=== PATIENT | male | born 1950 | race African-American/Black ===

== ENCOUNTER 2018-12-01 18:50 | Emergency (ER) | payer MEDICARE, OTHER ==
--- NOTE | 2018-12-01 19:39 | RAD ---
RADIOGRAPH CHEST 1 VIEW: DATE: 12/01/2018 HISTORY: 67-year-old male status post aspiration FINDINGS: There is no airspace density, pulmonary edema, or pneumothorax. The lateral costophrenic angles are n ot effaced. However, the lungs are hyperinflated, and the posterior lower lobe lung bases are therefore not visualized. IMPRESSION: No acute pulmonary findings. Limited study.
--- NOTE | 2018-12-01 19:43 | RAD ---
Radiograph neck soft tissues 2 views: 12/01/2018 HISTORY: 67-year-old male with dysphagia FINDINGS: There is high-grade multilevel degenerative disc disease and high-grade multilevel facet DJD. In addition, there are bulky anterior flowing osteophytes from C2 to C3 through C5-6 which encroach u isabel the posterior pharyngeal wall, distorting the hypopharynx and larynx. Prevertebral soft tissue thickness is normal. IMPRESSION: 1. DISH (diffuse idiopathic skeletal hyperostosis). This could result in chronic dysphagia. 2. Severe cervical spondylosis.
== END 2018-12-01 21:35 | disposition home or self-care (01) ==
LOC: ERS 18:50
DX: R13.10 Dysphagia, unspecified (principal); I25.10 Atherosclerotic heart disease of native coronary artery without angina pectoris; E78.5 Hyperlipidemia, unspecified; I10 Essential (primary) hypertension; Z79.899 Other long term (current) drug therapy; Z79.82 Long term (current) use of aspirin; Z86.73 Personal history of transient ischemic attack (TIA), and cerebral infarction without residual deficits
CPT/HCPCS: 70360; 71045

== ENCOUNTER 2018-12-19 18:29 | Inpatient (IN) | payer MEDICARE, OTHER ==
[2018-12-19 19:19] LABS: Actual Bicarbonate (HCO3a) 20.8 mEq/L (22-28); Analyzer IN Cardio ER; Base Excess (BEa) -4.8 mEq/L (-2.0 to +3.0); CO2 Tension 40.8 mmHg (35.0-45.0); Calcium, Ionized 1.27 mmol/L (1.12-1.30); Carboxyhemoglobin (COHb) 0.5 gm% (0.0-3.0); Hemoglobin (Hb) 17.1 g/dL (14.0-18.0); O2 Tension (PaO2) 66.7 mmHg (> 80.0); Potassium - ABG Lab 5.33 mmol/L (3.70-5.30); pH, Arterial 7.33 (7.35-7.45)
[2018-12-19 19:37] LABS: #Basophils 0.1 thou/uL (0.0-0.2); #Lymphocytes 1.2 thou/uL (1.20-3.40); #Monocytes 0.6 thou/uL (0.11-0.59); #Neutrophils 10.2 thou/uL (1.40-6.50); %Basophils 0.6 % (0.0-1.0); %Eosinophils 0.1 % (0.0-10.0); %Monocytes 5.1 % (0.0-10.0); %Neutrophils 84.2 % (42.0-75.0); Mean Corpuscular HGB CONC 30.9 g/dL (32.0-36.0); Mean Corpuscular Hemoglobin 28.4 pg (27.0-31.0); Mean Corpuscular Volume 91.9 fL (78.0-98.0); Mean Platelet Volume 11.9 fL (7.4-10.4); Platelet Count 180 thou/uL (130-400); RBC Distribution Width 14.1 % (11.5-14.5); White Blood Cell (WBC) Count 12.1 thou/uL (4.8-10.8)
[2018-12-19 19:39] LABS: Bilirubin Small (Negative); Blood, Urine Negative (Negative); Clarity CLOUDY (Clear); Glucose, Urine (Dipstick) Negative (Negative); Leukocyte Negative (Negative); Nitrite Negative (Negative); Protein, Urine (Dipstick) Negative (Neg-Trace); Specific Gravity, Urine 1.017 (1.002-1.036)
[2018-12-19 19:50] LABS: Puncture Site LRA
--- NOTE | 2018-12-19 19:51 | RAD ---
CHEST ONE VIEW: HISTORY: Altered mental status. COMPARISON: Radiograph from 12/01/2018. FINDINGS: There are abnormal air space opacities in both lower lobes. There is a small left effusion. There i s no pneumothorax. There is no acute osseous abnormality. IMPRESSION: Air space opacities, both lower lobes, may reflect infection or aspiration. POS: HOME
--- NOTE | 2018-12-19 19:56 | CT ---
CT BRAIN WITHOUT CONTRAST: HISTORY: Altered mental status. COMPARISON: CT brain from 11/06/2018. FINDINGS: Old left MCA infarction. No acute hemorrhage or infarct. Old lacunar infarcts. There is moderate d ilatation of the lateral ventricles. Mild atrophy. The calvarium is intact. The paranasal sinuses and mastoids are clear. IMPRESSION: Chronic findings. No acute intracranial abnormality. POS: HOME
[2018-12-19 20:17] LABS: ALT (SGPT) 18 U/L (8-55); AST (SGOT) 19 U/L (5-34); Acetaminophen Less than 6.0 mcg/mL (10.0-30.0); Alcohol Less than 10 mg/dL (Less than 10); Alkaline Phosphatase 140 U/L (40-150); Anion Gap 23 mmol/L (10-20); BUN (Urea Nitrogen) 107 mg/dL (8.4-25.7); Bilirubin, Total 1.3 mg/dL (0.2-1.2); Calc. Creatinine Clearance 0 mL/min (70-130); Carbon Dioxide 18 mmol/L (23-31); Chloride 119 mmol/L (98-107); Estimated GFR-MDRD 22; Globulin 4.8 g/dL (2.4-3.5); Glucose 176 mg/dL (80-115); Lipase 95 U/L (8-78); Potassium 5.9 mmol/L (3.5-5.1); Protein, Total 8.8 g/dL (5.8-8.1); Salicylate Less than 8.0 mg/dL (15.0-30.0); Sodium 154 mmol/L (136-145)
[2018-12-19] MEDS ORDERED: Insulin Regular 300 UNITS/3 ML VIAL ONE (20:43)
[2018-12-19] MEDS ORDERED: Piperacillin/Tazobactam 4.5 GM VIAL ONE (20:43)
[2018-12-19] MEDS ORDERED: Calcium Chloride 1 GM/10 ML Abboject SYRINGE ONE (20:43)
[2018-12-19] MEDS ORDERED: Clindamycin/D5W 600 mg/50 ml Premix Bag ONE (23:24)
[2018-12-19 23:38] LABS: Lactic Acid 2.5 mmol/L (0.5-2.2)
[2018-12-19] MEDS ORDERED: Ondansetron PF 4 MG/2 ML Vial IVP PRN (23:57)
[2018-12-19] MEDS ORDERED: Acetaminophen 325 MG TAB PO PRN (23:57)
[2018-12-19] MEDS ORDERED: Ondansetron ODT 4 MG TAB SL PRN (23:57)
[2018-12-19] MEDS ORDERED: Sodium Chloride 0.9% 1,000 ML IV SCH ×2 (23:59)
[2018-12-20 00:38] VITALS: BMI 24.4
[2018-12-20] MEDS ORDERED: Dextrose 5% in Water 1,000 ML IV PRN ×2 (02:01→07:32)
[2018-12-20] MEDS ORDERED: Dextrose 50% Abboject 50 ML SYRINGE IVP PRN (02:01)
[2018-12-20] MEDS ORDERED: HumaLOG 300 UNITS/3 ML VIAL SC PRN ×2 (02:01→07:32)
[2018-12-20] MEDS: Dextrose 5 %-0.45 % NaCl 1,000 ML IV SCH ×3 (02:40→22:23)
[2018-12-20] MEDS ORDERED: Artificial Tear Sol 15 ML BOT EA EYE PRN (02:53)
[2018-12-20] MEDS ORDERED: Vancomycin HCl 1.5 GM in Sodium Chloride 0.9% 250 ML 300 ML IVPB SCH (03:00)
[2018-12-20] MEDS ORDERED: Piperacillin/Tazobactam 4.5 GM in Sodium Chloride 0.9% 100 ML IVPB SCH ×2 (04:00→06:00)
[2018-12-20 04:03] LABS: Anion Gap 12 mmol/L (10-20); BUN (Urea Nitrogen) 96 mg/dL (8.4-25.7); Calc. Creatinine Clearance 29 mL/min (70-130); Calcium 9.8 mg/dL (7.8-10.44); Carbon Dioxide 19 mmol/L (23-31); Estimated GFR-MDRD 28; Glucose 207 mg/dL (80-115); Potassium 4.3 mmol/L (3.5-5.1); Sodium 153 mmol/L (136-145)
[2018-12-20 04:08] LABS: #Lymphocytes 1.1 thou/uL (1.20-3.40); #Monocytes 0.7 thou/uL (0.11-0.59); #Neutrophils 11.6 thou/uL (1.40-6.50); %Basophils 0.1 % (0.0-1.0); %Eosinophils 0.1 % (0.0-10.0); %Lymphocytes 8.4 % (21.0-51.0); %Monocytes 5.1 % (0.0-10.0); %Neutrophils 86.3 % (42.0-75.0); Hemoglobin 14.8 g/dL (14.0-18.0); Mean Corpuscular HGB CONC 29.9 g/dL (32.0-36.0); Mean Corpuscular Hemoglobin 27.8 pg (27.0-31.0); Mean Platelet Volume 11.7 fL (7.4-10.4); Platelet Count 160 thou/uL (130-400); RBC Distribution Width 13.8 % (11.5-14.5); Red Blood Cell (RBC) Count 5.33 mill/uL (4.70-6.10); White Blood Cell (WBC) Count 13.5 thou/uL (4.8-10.8)
[2018-12-20 04:18] LABS: Chloride 126 mmol/L (98-107)
--- NOTE | 2018-12-20 05:50 | HP ---
PRIMARY CARE DOCTOR: Dr. Irma Escobedo. CODE STATUS: Has not been verified; as of now will be full code. CHIEF COMPLAINT: Change in mental status. HISTORY OF PRESENT ILLNESS: This is a 68-year-old male patient with past medical history of stroke. The patient lives in a custodial. The patient is aphasic, came to the hospital after having change in mental status. It was reported that the patient has been lethargic, not eating and drinking for the past 2 to 3 days. Also complaining of abdominal pain. The symptoms were severe and that is the reason why the patient was transferred to hospital. REVIEW OF SYSTEMS: Unable to obtain. The patient is aphasic. PAST MEDICAL HISTORY: The patient has coronary artery disease, hyperlipidemia, history of CVA, diabetes, hypertension. PAST SURGICAL HISTORY: No surgical history. PSYCHIATRIC HISTORY: No previous psych history. SOCIAL HISTORY: Lives in long-term care facility in [place]. No alcohol. No drugs. No smoking history. ALLERGIES: NO KNOWN DRUG ALLERGIES. REPORTED MEDICATIONS: 1. Glipizide. 2. Aspirin. 3. Atenolol. 4. Clopidogrel. 5. Dorzolamide. 6. Furosemide. 7. Humalog. 8. Latanoprost. 9. Mirtazapine. 10. Potassium. 11. Scopolamine. 12. Simvastatin. 13. Timolol. 14. Trazodone. PHYSICAL EXAMINATION: VITAL SIGNS: On presentation, blood pressure 115/85 with heart rate 74, respiratory rate was 20, temperature 98.3. Pain was 0/10. Oxygen saturation was 100% on room air. GENERAL APPEARANCE: The patient is alert, aphasic, unable to establish a real communication. HEENT: Eyes, normal conjunctivae. Dry oral mucosa. Anicteric. No JVD. RESPIRATORY: Bilateral air entry decreased. No rales. No wheezes. Symmetric expansion. CARDIOVASCULAR: Normal rate, regular rhythm. No murmurs. No gallop. No edema. ABDOMEN: Soft. Normal bowel sounds. MUSCULOSKELETAL: Baseline range of motion and strength. SKIN: Warm, intact. No pallor. No rash. No redness. Capillary refill seems to be intact. NEUROLOGIC: No evidence of any new focal weakness. Cranial nerves seems to be intact. PSYCHIATRIC: Patient is in good mood. No anxiety. Optimal judgment. EKG was reviewed. The patient had normal sinus rhythm with left ventricular hypertrophy with repolarization abnormalities, NM 142. Head CT, chronic changes. No acute process. LABORATORY DATA: Reviewed. The patient has white count 12.1, hemoglobin 17, MCV 91, platelet count 180. Blood gas was done. The patient has a pH of 7.33, pCO2 of 40, pO2 of 66.7. Initial sodium was 154, repeat one 153; potassium 5.9, repeat one 4.3; chloride 119, repeat one 126; carbon dioxide 18, repeat one 19; anion gap 23, repeat one was 12; creatinine initially was 3.34, came down to 2.77; glucose 176, came down to 207; lactic acid 2.7, came down to 2.5. ASSESSMENT AND PLAN: The patient will be placed in the hospital with follow medical problems; 1. Dehydration likely due to poor oral intake. The patient has dysphagia after stroke. Will need a speech and swallow evaluation. Might need PEG tube placement. This will need to be clarified with the power of employment attorney in the morning. We will hydrate, we will monitor electrolytes, we will treat accordingly. 2. Leukocytosis with concern for some possible infection. Antibiotics have been started. Procalcitonin was sent and is negative. We will discontinue antibiotics since the leukocytosis seems to be more compatible with dehydration. We will continue to monitor. If any evidence of infection appears, we will restart treatment, it does not seem to be the case. 3. Hypernatremia. This is likely secondary to dehydration. We will hydrate with D5 half NS. We will continue to monitor BMP and we will adjust IV fluids accordingly. The patient had discussion regarding PEG tube placement and free water ingestion is the solution, specially in the long run in this patient's condition. 4. Hyperchloremic metabolic acidosis. We will correct the hyperchloremia with D5W and NS. We will monitor BMP and adjust fluids accordingly. 5. Acute kidney injury. The patient presented with a creatinine of 3.34. When the patient was discharged in October, creatinine was 0.9. This is, as mentioned above, likely due to dehydration. We will hydrate, we will monitor kidney function. Hopefully, he would continue to get better. 6. Uncontrolled diabetes with blood sugar of 176 to 207. The patient has been started on sliding scale for optimal control. 7. Lactic acidosis, initially 2.7, repeat one 2.5. This is likely secondary to dehydration or hypoperfusion. We will treat as above. 8. Deep venous thrombosis prophylaxis. 9. Acute encephalopathy. This is likely metabolic secondary to hypernatremia and dehydration. We will treat underlying condition. 10. History of coronary artery disease. This is chronic, is stable. Reconcile home medications. 11. Hyperlipidemia. Low-cholesterol diet is advised. Reconcile home medications. 12. Deep venous thrombosis prophylaxis. Job ID: [id number]
[2018-12-20] MEDS ORDERED: Clindamycin/D5W 600 MG in Premix Bag 1 BAG IVPB SCH (06:00)
[2018-12-20] MEDS ORDERED: Bisacodyl 10 MG SUPP PR PRN (07:32)
[2018-12-20] MEDS ORDERED: Diabetic Tussin 200 MG/10 ML UDCUP PO PRN (07:32)
[2018-12-20] MEDS ORDERED: Senokot S 8.6-50 MG TAB PO PRN (07:32)
[2018-12-20] MEDS ORDERED: Sodium Chloride 0.65% Nasal 44 ML BOT EA NARE PRN (07:32)
[2018-12-20] MEDS ORDERED: Cepastat Lozenges 1 LOZ PO PRN (07:32)
[2018-12-20] MEDS ORDERED: Artificial Tears 18 DROP/0.9 ML EA EYE PRN (07:32)
[2018-12-20] MEDS ORDERED: Loperamide HCl 2 MG CAP PO PRN (07:32)
[2018-12-20] MEDS ORDERED: hydrALAZINE 20 MG/ML VIAL SLOW IVP PRN (07:32)
[2018-12-20] MEDS ORDERED: Bisacodyl 5 MG TAB PO PRN (07:32)
[2018-12-20] MEDS ORDERED: Potassium Chloride 20 MEQ TAB PO SCH (09:00)
[2018-12-20] MEDS ORDERED: Furosemide 80 MG TAB PO SCH (09:00)
[2018-12-20] MEDS ORDERED: Prevnar 13-Val Conj/PF 0.5 ML SYRINGE IM ONE (09:00)
[2018-12-20] MEDS ORDERED: Vancomycin HCl 1 GM in Premix Bag 1 BAG IVPB SCH (09:00)
[2018-12-20] MEDS: Enoxaparin Sodium 30 MG/0.3 ML SYRINGE SC SCH (09:33)
[2018-12-20] MEDS: Atenolol 50 MG TAB PO SCH (09:35)
[2018-12-20] MEDS: Aspirin 325 MG TAB PO SCH (09:35)
[2018-12-20] MEDS: Clopidogrel Bisulfate 75 MG TAB PO SCH (09:36)
[2018-12-20] MEDS: Atorvastatin Calcium 10 MG TAB PO SCH (09:36)
[2018-12-20] MEDS: Timolol 0.5% Ophth Soln 5 ml Bottle EA EYE SCH ×2 (11:05→20:22)
[2018-12-20] MEDS: Dorzolamide HCl 2% Ophth Soln 10 ml Bottle R EYE SCH ×3 (11:06→20:21)
--- NOTE | 2018-12-20 12:05 | PDOC.PN ---
- Subjective Encounter Start Date: 12/20/18 Encounter Start Time: 08:15 -: non-verbal, old records requested/rev Patient seen and examined. No overnight events - Objective Resuscitation Status - Order Detail: 12/20/18 02:59 Resuscitation Status Routine Resuscitation Status: FULL: Full Resuscitation MAR Reviewed: Yes Vital Signs & Weight: Vital Signs (12 hours) Temp Pulse Resp BP BP Pulse Ox 12/20/18 11:05 62 121/78 12/20/18 09:35 62 12/20/18 08:00 98.4 F 62 20 121/78 98 12/20/18 04:00 97.7 F 64 20 108/69 99 Weight Weight 180 lb 0.119 oz I&O: 12/19/18 12/20/18 12/21/18 06:59 06:59 06:59 Intake Total 750 Output Total 1200 Balance -450 Result Diagrams: 12/20/18 03:30 12/20/18 03:30 Additional Labs: Accuchecks 12/20/18 12/19/18 04:26 20:47 POC Glucose 195 H 146 H Phys Exam - Physical Examination Constitutional: NAD HEENT: PERRLA, sclera anicteric dry MM Neck: no JVD, supple Respiratory: no wheezing, no rales, no rhonchi Cardiovascular: RRR, no significant murmur, no rub Gastrointestinal: soft, non-tender, no distention, positive bowel sounds Musculoskeletal: no edema, pulses present haq+ residual weakness Lymphatic: no nodes Psychiatric: normal affect Skin: no rash, normal turgor Dx/Plan (1) Acute metabolic encephalopathy Code(s): G93.41 - METABOLIC ENCEPHALOPATHY Status: Acute (2) Acute kidney failure Status: Acute (3) Dehydration Code(s): E86.0 - DEHYDRATION Status: Acute Comment: due to poor po intake, free water deficit (4) Hyperkalemia Code(s): E87.5 - HYPERKALEMIA Status: Acute (5) Hypernatremia Code(s): E87.0 - HYPEROSMOLALITY AND HYPERNATREMIA Status: Acute (6) Lactic acidosis Code(s): E87.2 - ACIDOSIS Status: Acute (7) Metabolic acidosis Code(s): E87.2 - ACIDOSIS Status: Acute (8) Diabetes type 2, controlled Code(s): E11.9 - TYPE 2 DIABETES MELLITUS WITHOUT COMPLICATIONS Status: Chronic (9) Dyslipidemia Code(s): E78.5 - HYPERLIPIDEMIA, UNSPECIFIED Status: Chronic (10) Glaucoma Code(s): H40.9 - UNSPECIFIED GLAUCOMA Status: Chronic (11) H/O: CVA (cerebrovascular accident) Code(s): Z86.73 - PRSNL HX OF TIA (TIA), AND CEREB INFRC W/O RESID DEFICITS Status: Chronic (12) HTN (hypertension) Code(s): I10 - ESSENTIAL (PRIMARY) HYPERTENSION Status: Chronic Qualifiers: - Plan cont current plan of care, continue antibiotics * continue dex with water 1/2 NS at 100 ml per hour * pt is not safe for PO intake as per speech * seems like pt will need peg tube for adequate nutritional intake. * I tried to call family but unable to reach on phone * add KAYLA kwong vancomycin * medication reviewed as below * symptomatic treatment * monitor labs * home meds reconciled Review of Systems - Review of Systems Other: unable to review due to AMS - Medications/Allergies Allergies/Adverse Reactions: Allergies Allergy/AdvReac Type Severity Reaction Status Date / Time No Known Drug Allergies Allergy Verified 12/20/18 02:13 Medications: Current Medications Acetaminophen (Tylenol) 650 mg PO Q4H PRN PRN Reason: Fever/Mild Pain Artificial Tears (Liquitears 15ml Bottle) 0 drop EA EYE DAILYPRN PRN PRN Reason: Dry Eyes Aspirin (Aspirin) 325 mg PO QAM-[facility] Last Admin: 12/20/18 09:35 Dose: Not Given Atenolol (Tenormin) 50 mg PO DAILY [facility] Last Admin: 12/20/18 09:35 Dose: Not Given Atorvastatin Calcium (Lipitor) 10 mg PO DAILY [facility] Last Admin: 12/20/18 09:36 Dose: Not Given Bisacodyl (Dulcolax) 10 mg OR DAILYPRN PRN PRN Reason: Constipation Bisacodyl (Dulcolax) 10 mg PO DAILYPRN PRN PRN Reason: Constipation Clopidogrel Bisulfate (Plavix) 75 mg PO DAILY [facility] Last Admin: 12/20/18 09:36 Dose: Not Given Dextrose/Water (Dextrose 50%) 25 gm IVP PRN PRN PRN Reason: HYPOGLYCEMIA PROTOCOL Dorzolamide HCl (Trusopt 2% Ophth Soln) 1 drop R EYE TID [facility] Last Admin: 12/20/18 11:06 Dose: 1 drop Enoxaparin Sodium (Lovenox) 30 mg SC 0900 [facility] Last Admin: 12/20/18 09:33 Dose: 30 mg Glucagon (Glucagon) 1 mg IM PRN PRN PRN Reason: Dry Eyes Guaifenesin (Robitussin Sf) 200 mg PO Q4H PRN PRN Reason: Cough Hydralazine HCl (Apresoline) 10 mg SLOW IVP Q4H PRN PRN Reason: SBP > 180 and HR < 70 Dextrose/Sodium Chloride (D5 1/2 Ns) 1,000 mls @ 100 mls/hr IV .Q10H [facility] Last Admin: 12/20/18 02:40 Dose: 1,000 mls Dextrose/Water (D5w) 1,000 mls @ 0 mls/hr IV .Q0M PRN PRN Reason: Hypoglycemia Insulin Human Lispro (Humalog) 0 units SC .MODERATE SLIDING SC PRN PRN Reason: Moderate Correctional Scale Insulin Human Lispro (Humalog) 0 units SC .BEDTIME SLIDING SC PRN PRN Reason: Bedtime Correctional Scale Latanoprost (Xalatan 0.005% Ophth Soln) 1 drop EA EYE HS [facility] Loperamide HCl (Imodium) 2 mg PO PRN PRN PRN Reason: Diarrhea/Loose Stools Mirtazapine (Remeron) 7.5 mg PO HS [facility] Miscellaneous Medication (Pharmacy To Dose) 1 each IVPB PRN PRN PRN Reason: SEPSIS Ondansetron HCl (Zofran) 4 mg IVP Q6H PRN PRN Reason: Nausea/Vomiting Stop: 12/24/18 08:40 Ondansetron HCl (Zofran Odt) 4 mg SL Q6H PRN PRN Reason: Nausea/Vomiting Stop: 12/25/18 08:40 Scopolamine (Transderm Scop) 1.5 mg TOP Q3D [facility] Senna/Docusate Sodium (Senokot S) 2 tab PO BID PRN PRN Reason: Constipation Sodium Chloride ([place] Nasal [place] 0.65%) 0 ml EA NARE QIDPRN PRN PRN Reason: Nasal Congestion Sodium Chloride (Flush - Normal Saline) 10 ml IVF Q12HR [facility] Last Admin: 12/20/18 11:08 Dose: Not Given Sodium Chloride (Flush - Normal Saline) 10 ml IVF PRN PRN PRN Reason: Saline Flush Throat Lozenges (Cepastat Lozenges) 1 jomar PO Q2H PRN PRN Reason: Sore Throat Timolol Maleate (Timoptic 0.5% Ophth Soln) 1 drop EA EYE BID [facility] Last Admin: 12/20/18 11:05 Dose: 1 drop Trazodone HCl (Desyrel) 25 mg PO HS [facility]
[2018-12-20] MEDS: Scopolamine 1.5 mg/72 hour Patch TOP SCH (13:17)
[2018-12-20] MEDS: cefTRIAXone\\ROCEPHIN 1 GM in Sodium Chloride 0.9% 100 ML IVPB SCH (13:18)
[2018-12-20] MEDS: Mirtazapine 15 MG TAB PO SCH (20:21)
[2018-12-20] MEDS: Latanoprost 0.005% Ophth Soln 2.5 ml Bottle EA EYE SCH (20:21)
[2018-12-20] MEDS: traZODone HCl 50 MG TAB PO SCH (20:22)
[2018-12-21] MEDS: HumaLOG 300 UNITS/3 ML VIAL SC PRN ×2 (05:35→12:18)
[2018-12-21 06:06] LABS: #Eosinphils 0.1 thou/uL (0.0-0.7); #Lymphocytes 1.1 thou/uL (1.20-3.40); #Monocytes 0.7 thou/uL (0.11-0.59); #Neutrophils 9.2 thou/uL (1.40-6.50); %Basophils 0.1 % (0.0-1.0); %Eosinophils 0.8 % (0.0-10.0); %Lymphocytes 9.8 % (21.0-51.0); %Neutrophils 83.4 % (42.0-75.0); Hemoglobin 13.4 g/dL (14.0-18.0); Mean Corpuscular HGB CONC 30.9 g/dL (32.0-36.0); Mean Corpuscular Hemoglobin 28.7 pg (27.0-31.0); Mean Corpuscular Volume 92.8 fL (78.0-98.0); Mean Platelet Volume 11.8 fL (7.4-10.4); Platelet Count 129 thou/uL (130-400); Red Blood Cell (RBC) Count 4.68 mill/uL (4.70-6.10)
[2018-12-21 06:29] LABS: ALT (SGPT) 19 U/L (8-55); AST (SGOT) 16 U/L (5-34); Albumin 3.2 g/dL (3.4-4.8); Alkaline Phosphatase 106 U/L (40-150); Anion Gap 14 mmol/L (10-20); BUN (Urea Nitrogen) 68 mg/dL (8.4-25.7); Calc. Creatinine Clearance 44 mL/min (70-130); Calcium 8.9 mg/dL (7.8-10.44); Carbon Dioxide 21 mmol/L (23-31); Chloride 125 mmol/L (98-107); Estimated GFR-MDRD 44; Globulin 3.4 g/dL (2.4-3.5); Glucose 277 mg/dL (80-115); Potassium 3.5 mmol/L (3.5-5.1); Protein, Total 6.6 g/dL (5.8-8.1); Sodium 156 mmol/L (136-145)
[2018-12-21] MEDS: Timolol 0.5% Ophth Soln 5 ml Bottle EA EYE SCH ×2 (07:48→20:18)
[2018-12-21] MEDS: Dorzolamide HCl 2% Ophth Soln 10 ml Bottle R EYE SCH ×3 (07:48→20:18)
[2018-12-21] MEDS: Dextrose 5% in Water 1,000 ML IV SCH ×2 (07:48→16:49)
[2018-12-21] MEDS: Atorvastatin Calcium 10 MG TAB PO SCH (07:49)
[2018-12-21] MEDS: Atenolol 50 MG TAB PO SCH (07:49)
[2018-12-21] MEDS: Aspirin 325 MG TAB PO SCH (07:49)
[2018-12-21] MEDS: Enoxaparin Sodium 30 MG/0.3 ML SYRINGE SC SCH (07:49)
[2018-12-21] MEDS: Clopidogrel Bisulfate 75 MG TAB PO SCH (07:49)
--- NOTE | 2018-12-21 11:15 | PDOC.PN ---
- Subjective Encounter Start Date: 12/21/18 Encounter Start Time: 08:15 Patient seen and examined. No overnight events - Objective Resuscitation Status - Order Detail: 12/20/18 02:59 Resuscitation Status Routine Resuscitation Status: FULL: Full Resuscitation MAR Reviewed: Yes Vital Signs & Weight: Vital Signs (12 hours) Temp Pulse Resp BP BP Pulse Ox 12/21/18 07:49 67 12/21/18 07:48 67 147/87 H 12/21/18 07:24 98.4 F 67 12 147/87 H 99 12/21/18 04:10 98.0 F 63 18 110/79 98 12/21/18 00:21 98.3 F 63 14 122/79 95 Weight Weight 180 lb 0.119 oz I&O: 12/20/18 12/21/18 12/22/18 06:59 06:59 06:59 Intake Total 750 2450 Output Total 1200 1425 Balance -450 1025 Result Diagrams: 12/21/18 05:49 12/21/18 05:48 Additional Labs: Accuchecks 12/21/18 12/20/18 12/20/18 04:13 20:03 16:23 POC Glucose 235 H 207 H 193 H 12/20/18 11:22 POC Glucose 254 H Phys Exam - Physical Examination Constitutional: NAD HEENT: PERRLA, sclera anicteric dry MM Neck: no JVD, supple Respiratory: no wheezing, no rales, no rhonchi, clear to auscultation bilateral Cardiovascular: RRR, no significant murmur, no rub Gastrointestinal: soft, non-tender, no distention Musculoskeletal: no edema, pulses present Lymphatic: no nodes Skin: no rash, normal turgor Dx/Plan (1) Acute metabolic encephalopathy Code(s): G93.41 - METABOLIC ENCEPHALOPATHY Status: Acute (2) Acute kidney failure Status: Acute (3) Dehydration Code(s): E86.0 - DEHYDRATION Status: Acute Comment: due to poor po intake, free water deficit (4) Hyperkalemia Code(s): E87.5 - HYPERKALEMIA Status: Acute (5) Hypernatremia Code(s): E87.0 - HYPEROSMOLALITY AND HYPERNATREMIA Status: Acute (6) Lactic acidosis Code(s): E87.2 - ACIDOSIS Status: Acute (7) Metabolic acidosis Code(s): E87.2 - ACIDOSIS Status: Acute (8) Diabetes type 2, controlled Code(s): E11.9 - TYPE 2 DIABETES MELLITUS WITHOUT COMPLICATIONS Status: Chronic (9) Dyslipidemia Code(s): E78.5 - HYPERLIPIDEMIA, UNSPECIFIED Status: Chronic (10) Glaucoma Code(s): H40.9 - UNSPECIFIED GLAUCOMA Status: Chronic (11) H/O: CVA (cerebrovascular accident) Code(s): Z86.73 - PRSNL HX OF TIA (TIA), AND CEREB INFRC W/O RESID DEFICITS Status: Chronic (12) HTN (hypertension) Code(s): I10 - ESSENTIAL (PRIMARY) HYPERTENSION Status: Chronic Qualifiers: - Plan cont current plan of care, plan discussed w/ family, continue antibiotics, social service technician * today will change to IV 5 % Dex with water at 100 ml per hour * I spoke with TRENT, regarding need for PEG tube for nutrition and hydration, and she agreed * will consult GI for PEG tube * will repeat labs tomorrow * supportive care * medication reviewed as below * symptomatic treatment. Review of Systems - Review of Systems Other: unable to review due to encephalopathy - Medications/Allergies Allergies/Adverse Reactions: Allergies Allergy/AdvReac Type Severity Reaction Status Date / Time No Known Drug Allergies Allergy Verified 12/20/18 02:13 Medications: Current Medications Acetaminophen (Tylenol) 650 mg PO Q4H PRN PRN Reason: Fever/Mild Pain Artificial Tears (Liquitears 15ml Bottle) 0 drop EA EYE DAILYPRN PRN PRN Reason: Dry Eyes Aspirin (Aspirin) 325 mg PO QAM-[facility] Last Admin: 12/21/18 07:49 Dose: Not Given Atenolol (Tenormin) 50 mg PO DAILY [facility] Last Admin: 12/21/18 07:49 Dose: Not Given Atorvastatin Calcium (Lipitor) 10 mg PO DAILY [facility] Last Admin: 12/21/18 07:49 Dose: Not Given Bisacodyl (Dulcolax) 10 mg HI DAILYPRN PRN PRN Reason: Constipation Bisacodyl (Dulcolax) 10 mg PO DAILYPRN PRN PRN Reason: Constipation Clopidogrel Bisulfate (Plavix) 75 mg PO DAILY [facility] Last Admin: 12/21/18 07:49 Dose: Not Given Dextrose/Water (Dextrose 50%) 25 gm IVP PRN PRN PRN Reason: HYPOGLYCEMIA PROTOCOL Dorzolamide HCl (Trusopt 2% Ophth Soln) 1 drop R EYE TID [facility] Last Admin: 12/21/18 07:48 Dose: 1 drop Enoxaparin Sodium (Lovenox) 30 mg SC 0900 [facility] Last Admin: 12/21/18 07:49 Dose: 30 mg Glucagon (Glucagon) 1 mg IM PRN PRN PRN Reason: Dry Eyes Guaifenesin (Robitussin Sf) 200 mg PO Q4H PRN PRN Reason: Cough Hydralazine HCl (Apresoline) 10 mg SLOW IVP Q4H PRN PRN Reason: SBP > 180 and HR < 70 Dextrose/Water (D5w) 1,000 mls @ 0 mls/hr IV .Q0M PRN PRN Reason: Hypoglycemia Ceftriaxone Sodium 1 gm/ (Sodium Chloride) 100 mls @ 200 mls/hr IVPB Q24HR [facility] Last Admin: 12/20/18 13:18 Dose: 100 mls Dextrose/Water (D5w) 1,000 mls @ 100 mls/hr IV .Q10H [facility] Last Admin: 12/21/18 07:48 Dose: 1,000 mls Insulin Human Lispro (Humalog) 0 units SC .MODERATE SLIDING SC PRN PRN Reason: Moderate Correctional Scale Last Admin: 12/21/18 05:35 Dose: 4 unit Insulin Human Lispro (Humalog) 0 units SC .BEDTIME SLIDING SC PRN PRN Reason: Bedtime Correctional Scale Latanoprost (Xalatan 0.005% Ophth Soln) 1 drop EA EYE [facility] Last Admin: 12/20/18 20:21 Dose: 1 drop Loperamide HCl (Imodium) 2 mg PO PRN PRN PRN Reason: Diarrhea/Loose Stools Mirtazapine (Remeron) 7.5 mg PO [facility] Last Admin: 12/20/18 20:21 Dose: Not Given Ondansetron HCl (Zofran) 4 mg IVP Q6H PRN PRN Reason: Nausea/Vomiting Stop: 12/24/18 08:40 Ondansetron HCl (Zofran Odt) 4 mg SL Q6H PRN PRN Reason: Nausea/Vomiting Stop: 12/25/18 08:40 Scopolamine (Transderm Scop) 1.5 mg TOP Q3D [facility] Last Admin: 12/20/18 13:17 Dose: 1.5 mg Senna/Docusate Sodium (Senokot S) 2 tab PO BID PRN PRN Reason: Constipation Sodium Chloride ([place] Nasal [place] 0.65%) 0 ml EA NARE QIDPRN PRN PRN Reason: Nasal Congestion Sodium Chloride (Flush - Normal Saline) 10 ml IVF Q12HR [facility] Last Admin: 12/21/18 07:48 Dose: Not Given Sodium Chloride (Flush - Normal Saline) 10 ml IVF PRN PRN PRN Reason: Saline Flush Throat Lozenges (Cepastat Lozenges) 1 jomar PO Q2H PRN PRN Reason: Sore Throat Timolol Maleate (Timoptic 0.5% Ophth Soln) 1 drop EA EYE BID [facility] Last Admin: 12/21/18 07:48 Dose: 1 drop Trazodone HCl (Desyrel) 25 mg PO HS [facility] Last Admin: 12/20/18 20:22 Dose: Not Given
[2018-12-21] MEDS: cefTRIAXone\\ROCEPHIN 1 GM in Sodium Chloride 0.9% 100 ML IVPB SCH (12:07)
[2018-12-21] MEDS: Latanoprost 0.005% Ophth Soln 2.5 ml Bottle EA EYE SCH (20:17)
[2018-12-21] MEDS: Mirtazapine 15 MG TAB PO SCH (20:18)
[2018-12-21] MEDS: traZODone HCl 50 MG TAB PO SCH (20:18)
--- NOTE | 2018-12-21 21:16 | CON ---
DATE OF CONSULTATION: 12/21/2018 CHIEF COMPLAINT: Confusion, trouble swallowing. HISTORY OF PRESENT ILLNESS: Mr. Velázquez is a 68-year-old man who was admitted on 12/19/2018 with altered mental status. His sister states that he has had progressive worsening with his trouble swallowing over the last couple months. He has always coughed when he swallowed, but he has had more trouble getting adequate oral intake gradually over the last couple months. He prior to admission became dehydrated and lethargic and had not been eating or drinking for a couple days and ultimately was transferred to the emergency room. He was found to have acute renal failure and hypernatremia. He has had no nausea, vomiting, diarrhea, constipation or blood in the stool. No known abdominal pain. GI was consulted for PEG tube placement. PAST MEDICAL HISTORY: Coronary artery disease, hyperlipidemia, stroke, diabetes mellitus, hypertension. PAST SURGICAL HISTORY: He had an incision and drainage of a necrotizing infection in his back. FAMILY HISTORY: Negative for GI malignancy. SOCIAL HISTORY: No alcohol, tobacco, or drugs. He is living in a fci. ALLERGIES: NO KNOWN DRUG ALLERGIES. MEDICATIONS: 1. Aspirin. 2. Atenolol. 3. Atorvastatin. 4. Ceftriaxone. 5. Clopidogrel. 6. Enoxaparin. 7. Dorzolamide eyedrops. 8. Hydralazine. 9. Latanoprost. 10. Mirtazapine. 11. Trazodone. 12. Atenolol. REVIEW OF SYSTEMS: Limited based on his mental status and aphasia. He reports no abdominal pain. PHYSICAL EXAMINATION: VITAL SIGNS: Temperature 98.3, pulse 61, blood pressure 134/85. GENERAL: He is in no acute distress. He is oriented to his name and the city, but otherwise not the year and he is not able to provide significant medical history. HEENT: His eyes have no scleral icterus. Oropharynx is clear without lesions. NECK: He has no cervical or supraclavicular lymphadenopathy. LUNGS: Clear to auscultation bilaterally. HEART: Regular rate and rhythm without murmur. ABDOMEN: Soft, nontender, and nondistended. Bowel sounds are present. EXTREMITIES: No lower extremity edema. LABORATORY DATA: White blood cell count 11.0, hemoglobin 13.4, platelets 129. INR 1.2. Creatinine is 1.85, down from 3.34 on admission. Sodium was 156 today. Bilirubin 1.0, AST 16, ALT 19, alkaline phosphatase 106, albumin 3.2. IMPRESSION: 1. Dehydration leading to hypernatremia and altered mental status and acute renal failure. 2. Oropharyngeal dysphagia with poor oral intake, coughing on any oral intake ultimately leading to the dehydration and acute hospitalization with the above-noted problems. RECOMMENDATIONS: We will proceed with EGD with PEG tube placement tomorrow with preprocedure antibiotics. Job ID: [id number]
[2018-12-22] MEDS: Dextrose 5% in Water 1,000 ML IV SCH ×3 (04:55→23:53)
[2018-12-22 06:57] LABS: #Basophils 0.1 thou/uL (0.0-0.2); #Eosinphils 0.1 thou/uL (0.0-0.7); #Lymphocytes 1.3 thou/uL (1.20-3.40); #Monocytes 0.6 thou/uL (0.11-0.59); #Neutrophils 6.5 thou/uL (1.40-6.50); %Basophils 0.8 % (0.0-1.0); %Eosinophils 1.5 % (0.0-10.0); %Lymphocytes 15.2 % (21.0-51.0); %Monocytes 6.6 % (0.0-10.0); %Neutrophils 75.9 % (42.0-75.0); Hemoglobin 13.8 g/dL (14.0-18.0); Mean Corpuscular Hemoglobin 28.6 pg (27.0-31.0); Mean Corpuscular Volume 92.3 fL (78.0-98.0); Mean Platelet Volume 11.9 fL (7.4-10.4); Platelet Count 123 thou/uL (130-400); Red Blood Cell (RBC) Count 4.84 mill/uL (4.70-6.10); White Blood Cell (WBC) Count 8.5 thou/uL (4.8-10.8)
[2018-12-22 07:20] LABS: Anion Gap 15 mmol/L (10-20); BUN (Urea Nitrogen) 38 mg/dL (8.4-25.7); Calc. Creatinine Clearance 59 mL/min (70-130); Calcium 9.1 mg/dL (7.8-10.44); Carbon Dioxide 18 mmol/L (23-31); Chloride 122 mmol/L (98-107); Estimated GFR-MDRD 62; Glucose 222 mg/dL (80-115); Potassium 3.5 mmol/L (3.5-5.1); Sodium 151 mmol/L (136-145)
[2018-12-22 07:48] LABS: Magnesium 2.3 mg/dL (1.6-2.6); Phosphorus 2.2 mg/dL (2.3-4.7)
[2018-12-22] MEDS ORDERED: K-Phos Neutral 250 MG TAB PO SCH ×2 (08:45→12:00)
[2018-12-22] MEDS: Atenolol 50 MG TAB PO SCH (09:10)
[2018-12-22] MEDS: Aspirin 325 MG TAB PO SCH (09:10)
[2018-12-22] MEDS: Atorvastatin Calcium 10 MG TAB PO SCH (09:11)
[2018-12-22] MEDS: Dorzolamide HCl 2% Ophth Soln 10 ml Bottle R EYE SCH ×3 (09:13→20:48)
[2018-12-22] MEDS: Timolol 0.5% Ophth Soln 5 ml Bottle EA EYE SCH ×2 (09:16→20:48)
[2018-12-22] MEDS ORDERED: Ondansetron HCl/PF 4 MG/2 ML Vial IVP PRN (10:53)
[2018-12-22] MEDS ORDERED: Promethazine HCl 25 MG/ML VIAL IM PRN (10:53)
[2018-12-22] MEDS ORDERED: Promethazine HCl 25 MG/ML VIAL SLOW IVP PRN (10:53)
[2018-12-22] MEDS ORDERED: Potassium Phosphate 9 MMOL in Sodium Chloride 0.9% 100 ML IVPB SCH (11:00)
[2018-12-22] MEDS ORDERED: Pantoprazole 40 MG VIAL IVP SCH (11:30)
[2018-12-22] MEDS: cefTRIAXone\\ROCEPHIN 1 GM in Sodium Chloride 0.9% 100 ML IVPB SCH (12:49)
[2018-12-22] MEDS ORDERED: Lidocaine 1% PF 5 ML VIAL ONE (13:47)
[2018-12-22] MEDS ORDERED: PROPOFOL 200 MG/20 ML VIAL ONE (13:47)
--- NOTE | 2018-12-22 13:59 | OP ---
DATE OF PROCEDURE: 12/22/2018 PROCEDURE PERFORMED: Esophagogastroduodenoscopy with percutaneous endoscopic gastrostomy tube placement and biopsy. PREOPERATIVE DIAGNOSIS: Oropharyngeal dysphagia. DESCRIPTION OF PROCEDURE: Informed consent was obtained from the patient and his family. He was sedated with total intravenous anesthesia. The bite block was placed and the endoscope was advanced easily to the second portion of the duodenum and retroflexion was performed in the stomach. The esophagus was normal. There was a 3 cm hiatal hernia present. The stomach had a 7 mm ulcer in the antrum with white base without stigmata of recent bleeding. Retroflex views in the stomach were unremarkable, except for the hiatal hernia. The pylorus was normal. There were 2 ulcers at the junction between the first and second portions of the duodenum measuring 5 mm and 10 mm and also with clean white base without stigmata of recent bleeding. The remainder of the duodenal mucosa was unremarkable. Biopsies were taken from the antrum to rule out Helicobacter pylori. The stomach was fully insufflated. The appropriate site in the left upper quadrant below the left ribs was palpated and transilluminated. The skin was sterilized with chlorhexidine. The patient did receive Ancef 2 g immediately before the procedure. The skin was sterilized with 5 mL of 1% lidocaine. A small incision was made with a scalpel. The catheter was placed through the abdominal wall into the stomach under direct visualization in 1 attempt. The wire was placed through the catheter and grasped with a snare and pulled out to the patient's mouth. A 20-Lithuanian gastrostomy tube was then placed by the pull-through technique. The external bumper was placed at 5 cm. The patient did have a thick abdominal wall. Second-look endoscopy showed the internal bumper to be in good position and the body of the stomach. The air was suctioned. The procedure was completed. IMPRESSION: 1. A 7 mm gastric antrum ulcer. Biopsies obtained to rule out Helicobacter pylori. 2. Two ulcers at the junction of the second and first portions of the duodenum measuring 5 to 10 mm. 3. Hiatal hernia 3 to 4 cm. 4. A 20-Lithuanian percutaneous endoscopic gastrostomy tube placed. RECOMMENDATIONS: 1. Await histopathology. 2. Start feeds in 12 hours. Job ID: [id number]
--- NOTE | 2018-12-22 15:04 | PRG ---
DATE OF SERVICE: 12/22/2018 SUBJECTIVE: A 68-year-old male prison resident, admitted 3 days ago with altered mentation. He had PEG tube placed today. Family is at the bedside. No fevers or chills reported. REVIEW OF SYSTEMS: Cannot be obtained due to current mentation. OBJECTIVE: VITAL SIGNS: Temperature 98.4, pulse of 73, respirations of 20, blood pressure 124/82 with O2 saturation 99% on room air. GENERAL: A 68-year-old male, in no apparent distress. LUNGS: Showed bibasilar rales with scattered rhonchi. No wheezing appreciated. HEART: S1 and S2 present, regular. ABDOMEN: Soft. Bowel sounds present. PEG tube in place. EXTREMITIES: No edema or calf tenderness. NEUROLOGY: Could not be done due to current cognitive status. PSYCHIATRY: Could not be done due to current cognitive status. LABORATORY DATA: Lab findings; creatinine down to 1.38, BUN 38, bicarbonate is 18, chloride is 122 from 125, sodium of 151, potassium 3.5, phosphorus 2.2, and magnesium 2.3. Chest x-ray on admission by my review showed findings consistent with aspiration pneumonia. IMPRESSION: 1. Sepsis secondary to aspiration pneumonia. 2. Toxic metabolic encephalopathy, multifactorial. 3. Acute kidney injury on chronic kidney disease stage 2. 4. Significant dehydration with lactic acidosis. 5. Hypernatremia/hyperkalemia/hypophosphatemia. 6. Metabolic acidosis secondary to renal failure and lactic acidosis. 7. Diabetes mellitus type 2. 8. Glaucoma. 9. History of cerebrovascular accident. 10. Hypertension. 11. Physical deconditioning. PLAN: PEG tube feeding will be initiated. We will replace phosphorus. Lisinopril, glipizide is currently on hold. We will hold Remeron and trazodone for now. Continue sliding scale. We will resume atenolol at low dose. We will continue D5 water. Resume aspirin and Plavix. DVT prophylaxis with Lovenox. Plan was discussed with the DPOA, sister at the bedside. She stated understanding. Job ID: [id number]
--- NOTE | 2018-12-22 15:08 | PDOC.EVN ---
Event Note - Event Note Event Note: Patient continues to have approx 20 secs of Apnea. Continuous pulse ox.
[2018-12-22] MEDS: metroNIDAZOLE 500 MG in Premix Bag 1 BAG IVPB SCH ×2 (15:15→23:51)
[2018-12-22] MEDS: HumaLOG 300 UNITS/3 ML VIAL SC PRN (16:40)
[2018-12-22] MEDS: Latanoprost 0.005% Ophth Soln 2.5 ml Bottle EA EYE SCH (20:48)
[2018-12-22] MEDS: Atenolol 25 MG TAB PER TUBE SCH (23:53)
[2018-12-23 06:04] LABS: Albumin 2.9 g/dL (3.4-4.8); Anion Gap 13 mmol/L (10-20); BUN (Urea Nitrogen) 25 mg/dL (8.4-25.7); BUN/Creatinine Ratio 20.83; Calc. Creatinine Clearance 68 mL/min (70-130); Calcium 8.5 mg/dL (7.8-10.44); Carbon Dioxide 19 mmol/L (23-31); Chloride 119 mmol/L (98-107); Estimated GFR-MDRD 73; Glucose 297 mg/dL (80-115); Magnesium 2.1 mg/dL (1.6-2.6); Phosphorus 2.4 mg/dL (2.3-4.7); Potassium 3.6 mmol/L (3.5-5.1); Sodium 147 mmol/L (136-145)
[2018-12-23] MEDS ORDERED: Dextrose 5% in Water 1,000 ML IV SCH (07:16)
[2018-12-23] MEDS: HumaLOG 300 UNITS/3 ML VIAL SC PRN ×3 (07:36→18:18)
[2018-12-23] MEDS: metroNIDAZOLE 500 MG in Premix Bag 1 BAG IVPB SCH ×3 (08:32→22:55)
[2018-12-23] MEDS: Pantoprazole 40 MG VIAL IVP SCH (08:35)
[2018-12-23] MEDS: Atenolol 25 MG TAB PER TUBE SCH ×2 (08:40→20:33)
[2018-12-23] MEDS: Atorvastatin Calcium 10 MG TAB PO SCH (08:43)
[2018-12-23] MEDS: Saccharomyces boulardii 250 MG CAP PO SCH (08:43)
[2018-12-23] MEDS: Aspirin 325 MG TAB PO SCH (08:43)
[2018-12-23] MEDS: Scopolamine 1.5 mg/72 hour Patch TOP SCH (08:43)
[2018-12-23] MEDS: Timolol 0.5% Ophth Soln 5 ml Bottle EA EYE SCH ×2 (08:45→20:35)
[2018-12-23] MEDS: Dorzolamide HCl 2% Ophth Soln 10 ml Bottle R EYE SCH ×3 (08:49→20:35)
[2018-12-23] MEDS: Enoxaparin Sodium 30 MG/0.3 ML SYRINGE SC SCH (09:40)
[2018-12-23] MEDS: cefTRIAXone\\ROCEPHIN 1 GM in Sodium Chloride 0.9% 100 ML IVPB SCH (12:32)
[2018-12-23] MEDS: Dextrose 5% in Water 1,000 ML IV SCH (17:09)
[2018-12-23] MEDS: glipiZIDE 5 MG TAB PER TUBE SCH (17:10)
[2018-12-23] MEDS: Latanoprost 0.005% Ophth Soln 2.5 ml Bottle EA EYE SCH (20:35)
--- NOTE | 2018-12-23 21:51 | PRG ---
DATE OF SERVICE: 12/23/2018 SUBJECTIVE: Mr. Velázquez is tolerating his PEG tube feeds well. He has no abdominal pain. OBJECTIVE: VITAL SIGNS: Temperature 98.2, pulse 73, blood pressure 150/70. GENERAL: He is in no acute distress. Awake and alert. LUNGS: Clear to auscultation bilaterally. HEART: Regular rate and rhythm without murmur. ABDOMEN: Soft, nontender, nondistended. Bowel sounds are present. The G-tube site appears healthy. The external bumper was loosened from 5 cm to 5.5 cm. IMPRESSION: 1. Oropharyngeal dysphagia, status post gastrostomy tube placement. 2. Hypernatremia, improving. 3. Protein-calorie malnutrition. RECOMMENDATIONS: 1. Continue PEG tube feeds with water flushes. 2. I will sign off. Please call if GI can be of assistance. Job ID: [id number]
--- NOTE | 2018-12-23 22:29 | PDOC.PN ---
- Subjective Encounter Start Date: 12/23/18 Encounter Start Time: 12:30 Patient seen and examined for Sepsis/AMS/MEENA. Mentation improving. Tolerating PEG feeds. No new complaints. No overnight events - Objective Resuscitation Status - Order Detail: 12/20/18 02:59 Resuscitation Status Routine Resuscitation Status: FULL: Full Resuscitation MAR Reviewed: Yes Vital Signs & Weight: Vital Signs (12 hours) Temp Pulse Resp BP BP Pulse Ox 12/23/18 20:35 73 12/23/18 20:00 98.2 F 107 H 18 150/70 H 100 12/23/18 16:00 98.9 F 70 18 120/85 100 12/23/18 11:36 98.7 F 72 20 148/84 H 100 Weight Admit Weight 180 lb 0.119 oz Weight 180 lb 0.119 oz I&O: 12/22/18 12/23/18 12/24/18 06:59 06:59 06:59 Intake Total 2400 2180 1430 Output Total 1050 650 Balance 1350 2180 780 Result Diagrams: 12/22/18 06:05 12/24/18 05:20 Additional Labs: Accuchecks 12/23/18 12/23/18 12/23/18 20:14 17:19 11:35 POC Glucose 244 H 255 H 282 H 12/23/18 05:41 POC Glucose 261 H Phys Exam - Physical Examination Constitutional: NAD Respiratory: no wheezing, no rhonchi few rales at bases Cardiovascular: RRR, no rub Gastrointestinal: soft, positive bowel sounds PEG + Dx/Plan - Plan DVT proph w/SCDs IMPRESSION: 1. Sepsis secondary to aspiration pneumonia. 2. Toxic metabolic encephalopathy, multifactorial. 3. Acute kidney injury on chronic kidney disease stage 2. 4. Significant dehydration with lactic acidosis. 5. Hypernatremia/hyperkalemia/hypophosphatemia. 6. Metabolic acidosis secondary to renal failure and lactic acidosis. 7. Diabetes mellitus type 2. 8. Glaucoma. 9. History of cerebrovascular accident. 10. Hypertension. 11. Physical deconditioning. 12. Moderate PEM. PLAN: Cont Atbx AM labs Cont PEG tube feeds Restart Glipizide Cont other meds as below Review of Systems - Review of Systems Respiratory: Cough, Dry. negative: Shortness of Breath, Hemoptysis, SOB with Excertion, Pleuritic Pain, Sputum, Wheezing Cardiovascular: negative: chest pain, palpitations, orthopnea, paroxysmal nocturnal dyspnea, edema, light headedness, other Gastrointestinal: negative: Nausea, Vomiting, Abdominal Pain, Diarrhea, Constipation, Melena, Hematochezia, Other - Medications/Allergies Allergies/Adverse Reactions: Allergies Allergy/AdvReac Type Severity Reaction Status Date / Time No Known Drug Allergies Allergy Verified 12/20/18 02:13 Medications: Current Medications Acetaminophen (Tylenol) 650 mg PO Q4H PRN PRN Reason: Fever/Mild Pain Artificial Tears (Liquitears 15ml Bottle) 0 drop EA EYE DAILYPRN PRN PRN Reason: Dry Eyes Aspirin (Aspirin) 325 mg PO QAM[facility] Last Admin: 12/23/18 08:43 Dose: 325 mg Atenolol (Tenormin) 25 mg PER TUBE BID [facility] Last Admin: 12/23/18 20:33 Dose: 25 mg Atorvastatin Calcium (Lipitor) 10 mg PO DAILY [facility] Last Admin: 12/23/18 08:43 Dose: 10 mg Bisacodyl (Dulcolax) 10 mg [place] DAILYPRN PRN PRN Reason: Constipation Bisacodyl (Dulcolax) 10 mg PO DAILYPRN PRN PRN Reason: Constipation Clopidogrel Bisulfate (Plavix) 75 mg PO DAILY [facility] Last Admin: 12/21/18 07:49 Dose: Not Given Dextrose/Water (Dextrose 50%) 25 gm IVP PRN PRN PRN Reason: HYPOGLYCEMIA PROTOCOL [facility] 1 drop R EYE TID [facility] Last Admin: 12/23/18 20:35 Dose: 1 drop Glipizide (Glucotrol) 5 mg PER TUBE BID-AC [facility] Last Admin: 12/23/18 17:10 Dose: 5 mg Glucagon (Glucagon) 1 mg IM PRN PRN PRN Reason: Dry Eyes Guaifenesin (Robitussin Sf) 200 mg PO Q4H PRN PRN Reason: Cough Hydralazine HCl (Apresoline) 10 mg SLOW IVP Q4H PRN PRN Reason: SBP > 180 and HR < 70 Dextrose/Water (D5w) 1,000 mls @ 0 mls/hr IV .Q0M PRN PRN Reason: Hypoglycemia Ceftriaxone Sodium 1 gm/ (Sodium Chloride) 100 mls @ 200 mls/hr IVPB Q24HR [facility] Last Admin: 12/23/18 12:32 Dose: 100 mls Metronidazole 500 mg/ Device 100 mls @ 100 mls/hr IVPB Q8H [facility] Last Admin: 12/23/18 14:37 Dose: 100 mls Dextrose/Water (D5w) 1,000 mls @ 30 mls/hr IV .Q24H [facility] Last Admin: 12/23/18 17:09 Dose: 1,000 mls Insulin Human Lispro (Humalog) 0 units SC .MODERATE SLIDING SC PRN PRN Reason: Moderate Correctional Scale Last Admin: 12/23/18 18:18 Dose: 6 unit Insulin Human Lispro (Humalog) 0 units SC .BEDTIME SLIDING SC PRN PRN Reason: Bedtime Correctional Scale Latanoprost (Xalatan 0.005% Ophth Soln) 1 drop EA EYE HS [facility] Last Admin: 12/23/18 20:35 Dose: 1 drop Ondansetron HCl (Zofran) 4 mg IVP Q6H PRN PRN Reason: Nausea/Vomiting Stop: 12/24/18 08:40 Ondansetron HCl (Zofran Odt) 4 mg SL Q6H PRN PRN Reason: Nausea/Vomiting Stop: 12/25/18 08:40 Pantoprazole Sodium (Protonix) 40 mg IVP DAILY [facility] Last Admin: 12/23/18 08:35 Dose: 40 mg Saccharomyces Boulardii (Florastor) 250 mg PO DAILY [facility] Last Admin: 12/23/18 08:43 Dose: 250 mg Scopolamine (Transderm Scop) 1.5 mg TOP Q3D [facility] Last Admin: 12/23/18 08:43 Dose: 1.5 mg Senna/Docusate Sodium (Senokot S) 2 tab PO BID PRN PRN Reason: Constipation Sodium Chloride ([place] Nasal [place] 0.65%) 0 ml EA NARE QIDPRN PRN PRN Reason: Nasal Congestion Sodium Chloride (Flush - Normal Saline) 10 ml IVF Q12HR [facility] Last Admin: 12/23/18 20:36 Dose: Not Given Sodium Chloride (Flush - Normal Saline) 10 ml IVF PRN PRN PRN Reason: Saline Flush Throat Lozenges (Cepastat Lozenges) 1 jomar PO Q2H PRN PRN Reason: Sore Throat Timolol Maleate (Timoptic 0.5% Ophth Soln) 1 drop EA EYE BID [facility] Last Admin: 12/23/18 20:35 Dose: 1 drop
[2018-12-24] MEDS: Dextrose 5% in Water 1,000 ML IV SCH (05:09)
[2018-12-24] MEDS: metroNIDAZOLE 500 MG in Premix Bag 1 BAG IVPB SCH ×3 (05:09→22:21)
[2018-12-24] MEDS: HumaLOG 300 UNITS/3 ML VIAL SC PRN ×3 (05:19→17:44)
[2018-12-24 06:00] LABS: Albumin 2.8 g/dL (3.4-4.8); Anion Gap 12 mmol/L (10-20); BUN (Urea Nitrogen) 22 mg/dL (8.4-25.7); Calc. Creatinine Clearance 72 mL/min (70-130); Calcium 8.6 mg/dL (7.8-10.44); Carbon Dioxide 22 mmol/L (23-31); Chloride 119 mmol/L (98-107); Estimated GFR-MDRD 77; Glucose 218 mg/dL (80-115); Magnesium 2.3 mg/dL (1.6-2.6); Phosphorus 2.4 mg/dL (2.3-4.7); Potassium 3.8 mmol/L (3.5-5.1); Sodium 149 mmol/L (136-145)
[2018-12-24] MEDS: Aspirin 325 MG TAB PO SCH (09:48)
[2018-12-24] MEDS: Atenolol 25 MG TAB PER TUBE SCH (09:48)
[2018-12-24] MEDS: glipiZIDE 5 MG TAB PER TUBE SCH ×2 (09:48→17:35)
[2018-12-24] MEDS: Saccharomyces boulardii 250 MG CAP PO SCH (09:48)
[2018-12-24] MEDS: Pantoprazole 40 MG VIAL IVP SCH (09:48)
[2018-12-24] MEDS: Atorvastatin Calcium 10 MG TAB PO SCH (09:49)
[2018-12-24] MEDS: Timolol 0.5% Ophth Soln 5 ml Bottle EA EYE SCH ×2 (09:49→20:42)
[2018-12-24] MEDS: Dorzolamide HCl 2% Ophth Soln 10 ml Bottle R EYE SCH ×3 (09:51→20:40)
[2018-12-24] MEDS: cefTRIAXone\\ROCEPHIN 2 GM in Sodium Chloride 0.9% 100 ML IVPB SCH (11:52)
[2018-12-24] MEDS ORDERED: NPH, Human Insulin Isophane 300 UNIT/3 ML VIAL SC SCH (12:45)
[2018-12-24] MEDS ORDERED: Tamsulosin HCl 0.4 MG CAP PO SCH (16:45)
--- NOTE | 2018-12-24 17:09 | PDOC.PN ---
- Subjective Encounter Start Date: 12/24/18 Encounter Start Time: 10:30 Patient seen and examined for Sepsis. Low grade fever per RN. Tolerating tube feeds. No new complaints. No overnight events. Gamaliel evans. - Objective Resuscitation Status - Order Detail: 12/20/18 02:59 Resuscitation Status Routine Resuscitation Status: FULL: Full Resuscitation MAR Reviewed: Yes Vital Signs & Weight: Vital Signs (12 hours) Temp Pulse Resp BP BP Pulse Ox 12/24/18 11:05 97.6 F 85 18 109/70 12/24/18 09:49 91 126/82 12/24/18 09:48 91 126/82 12/24/18 08:00 99.0 F 91 18 126/82 100 Weight Admit Weight 180 lb 0.119 oz Weight 180 lb 0.119 oz I&O: 12/23/18 12/24/18 12/25/18 06:59 06:59 06:59 Intake Total 2180 1430 30 Output Total 950 Balance 2180 480 30 Result Diagrams: 12/22/18 06:05 12/24/18 05:20 Additional Labs: Accuchecks 12/24/18 12/24/18 12/23/18 11:04 04:37 20:14 POC Glucose 308 H 213 H 244 H 12/23/18 17:19 POC Glucose 255 H Phys Exam - Physical Examination Constitutional: NAD Respiratory: no wheezing, no rhonchi Bibasilar rales Cardiovascular: RRR, no rub Gastrointestinal: soft, non-tender, positive bowel sounds Dx/Plan - Plan DVT proph w/SCDs IMPRESSION: 1. Sepsis secondary to aspiration pneumonia. 2. Toxic metabolic encephalopathy, multifactorial. 3. Acute kidney injury on chronic kidney disease stage 2. improving 4. Significant dehydration with lactic acidosis. 5. Hypernatremia/hyperkalemia/hypophosphatemia. 6. Metabolic acidosis secondary to renal failure and lactic acidosis. 7. Diabetes mellitus type 2. 8. Glaucoma. 9. History of CVA. 10. Hypertension. 11. Physical deconditioning. 12. Moderate PEM. PLAN: Cont Ceftriaxone with Flagyl AM labs Bolus feeds Add Insulin Cont IVF at KVO Cont Glipizide with sliding scale Cont other meds as below Bladder scan to r/o retention DC in 24-48 hr if stable Review of Systems - Review of Systems Respiratory: negative: Cough, Dry, Shortness of Breath, Hemoptysis, SOB with Excertion, Pleuritic Pain, Sputum, Wheezing Cardiovascular: negative: chest pain, palpitations, orthopnea, paroxysmal nocturnal dyspnea, edema, light headedness, other - Medications/Allergies Allergies/Adverse Reactions: Allergies Allergy/AdvReac Type Severity Reaction Status Date / Time No Known Drug Allergies Allergy Verified 12/20/18 02:13 Medications: Current Medications Acetaminophen (Tylenol) 650 mg PO Q4H PRN PRN Reason: Fever/Mild Pain Artificial Tears (Liquitears 15ml Bottle) 0 drop EA EYE DAILYPRN PRN PRN Reason: Dry Eyes Aspirin (Aspirin) 325 mg PO QAM[facility] Last Admin: 12/24/18 09:48 Dose: 325 mg Atenolol (Tenormin) 25 mg PER TUBE DAILY [facility] Atorvastatin Calcium (Lipitor) 10 mg PO DAILY [facility] Last Admin: 12/24/18 09:49 Dose: 10 mg Bisacodyl (Dulcolax) 10 mg [place] DAILYPRN PRN PRN Reason: Constipation Bisacodyl (Dulcolax) 10 mg PO DAILYPRN PRN PRN Reason: Constipation Clopidogrel Bisulfate (Plavix) 75 mg PO DAILY [facility] Last Admin: 12/21/18 07:49 Dose: Not Given Dextrose/Water (Dextrose 50%) 25 gm IVP PRN PRN PRN Reason: HYPOGLYCEMIA PROTOCOL Dorzolamide [facility] ([facility]opt [facility]) 1 drop R EYE TID [facility] Last Admin: 12/24/18 15:45 Dose: 1 drop Glipizide (Glucotrol) 5 mg PER TUBE BID-AC [facility] Last Admin: 12/24/18 09:48 Dose: 5 mg Glucagon (Glucagon) 1 mg IM PRN PRN PRN Reason: Dry Eyes Guaifenesin (Robitussin Sf) 200 mg PO Q4H PRN PRN Reason: Cough Hydralazine HCl (Apresoline) 10 mg SLOW IVP Q4H PRN PRN Reason: SBP > 180 and HR < 70 Dextrose/Water (D5w) 1,000 mls @ 0 mls/hr IV .Q0M PRN PRN Reason: Hypoglycemia Metronidazole 500 mg/ Device 100 mls @ 100 mls/hr IVPB Q8H [facility] Last Admin: 12/24/18 15:44 Dose: 100 mls Dextrose/Water (D5w) 1,000 mls @ 30 mls/hr IV .Q24H [facility] Last Admin: 12/24/18 05:09 Dose: 1,000 mls Ceftriaxone Sodium 2 gm/ (Sodium Chloride) 100 mls @ 200 mls/hr IVPB Q24HR [facility] Last Admin: 12/24/18 11:52 Dose: 100 mls Insulin Human Lispro (Humalog) 0 units SC .MODERATE SLIDING SC PRN PRN Reason: Moderate Correctional Scale Last Admin: 12/24/18 11:55 Dose: 8 unit Insulin Human Lispro (Humalog) 0 units SC .BEDTIME SLIDING SC PRN PRN Reason: Bedtime Correctional Scale Insulin Human NPH (Humulin N) 10 unit SC DAILY [facility] Latanoprost (Xalatan 0.005% Ophth Soln) 1 drop EA EYE HS [facility] Last Admin: 12/23/18 20:35 Dose: 1 drop Ondansetron HCl (Zofran Odt) 4 mg SL Q6H PRN PRN Reason: Nausea/Vomiting Stop: 12/25/18 08:40 Pantoprazole Sodium (Protonix) 40 mg IVP DAILY [facility] Last Admin: 12/24/18 09:48 Dose: 40 mg Saccharomyces Boulardii (Florastor) 250 mg PO DAILY [facility] Last Admin: 12/24/18 09:48 Dose: 250 mg Scopolamine (Transderm Scop) 1.5 mg TOP Q3D [facility] Last Admin: 12/23/18 08:43 Dose: 1.5 mg Senna/Docusate Sodium (Senokot S) 2 tab PO BID PRN PRN Reason: Constipation Sodium Chloride ([place] Nasal [place] 0.65%) 0 ml EA NARE QIDPRN PRN PRN Reason: Nasal Congestion Sodium Chloride (Flush - Normal Saline) 10 ml IVF Q12HR [facility] Last Admin: 12/24/18 09:51 Dose: 10 ml Sodium Chloride (Flush - Normal Saline) 10 ml IVF PRN PRN PRN Reason: Saline Flush Tamsulosin HCl (Flomax) 0.4 mg PO ONE [facility] Stop: 12/24/18 17:30 Tamsulosin HCl (Flomax) 0.4 mg PO [facility] Throat Lozenges (Cepastat Lozenges) 1 jomar PO Q2H PRN PRN Reason: Sore Throat Timolol Maleate (Timoptic 0.5% Ophth Soln) 1 drop EA EYE BID [facility] Last Admin: 12/24/18 09:49 Dose: 1 drop
[2018-12-24] MEDS: Acetaminophen 325 MG TAB PO PRN (20:32)
[2018-12-24] MEDS: Latanoprost 0.005% Ophth Soln 2.5 ml Bottle EA EYE SCH (20:40)
[2018-12-25] MEDS: Acetaminophen 325 MG TAB PO PRN ×2 (04:37→16:42)
[2018-12-25] MEDS: Vancomycin HCl 1 GM in Premix Bag 1 BAG IVPB SCH ×2 (04:49→16:05)
[2018-12-25 05:35] LABS: #Eosinphils 0.1 thou/uL (0.0-0.7); #Lymphocytes 1.2 thou/uL (1.20-3.40); #Monocytes 0.7 thou/uL (0.11-0.59); #Neutrophils 9.2 thou/uL (1.40-6.50); %Basophils 0.1 % (0.0-1.0); %Eosinophils 1.2 % (0.0-10.0); %Lymphocytes 10.4 % (21.0-51.0); %Monocytes 6.1 % (0.0-10.0); %Neutrophils 82.3 % (42.0-75.0); Mean Corpuscular HGB CONC 31.7 g/dL (32.0-36.0); Mean Corpuscular Hemoglobin 29.1 pg (27.0-31.0); Mean Corpuscular Volume 91.7 fL (78.0-98.0); Mean Platelet Volume 12.3 fL (7.4-10.4); Platelet Count 102 thou/uL (130-400); RBC Distribution Width 14.2 % (11.5-14.5); Red Blood Cell (RBC) Count 3.79 mill/uL (4.70-6.10); White Blood Cell (WBC) Count 11.2 thou/uL (4.8-10.8)
[2018-12-25 05:53] LABS: Albumin 2.6 g/dL (3.4-4.8); Anion Gap 8 mmol/L (10-20); BUN (Urea Nitrogen) 25 mg/dL (8.4-25.7); BUN/Creatinine Ratio 21.74; Calc. Creatinine Clearance 71 mL/min (70-130); Calcium 8.2 mg/dL (7.8-10.44); Carbon Dioxide 24 mmol/L (23-31); Chloride 117 mmol/L (98-107); Estimated GFR-MDRD 77; Glucose 328 mg/dL (80-115); Phosphorus 1.6 mg/dL (2.3-4.7); Potassium 3.4 mmol/L (3.5-5.1); Sodium 146 mmol/L (136-145)
[2018-12-25] MEDS: metroNIDAZOLE 500 MG in Premix Bag 1 BAG IVPB SCH ×3 (06:14→22:47)
[2018-12-25] MEDS ORDERED: Potassium Phosphate 15 MMOL in Sodium Chloride 0.9% 250 ML 250 ML IVPB SCH (06:30)
[2018-12-25] MEDS: HumaLOG 300 UNITS/3 ML VIAL SC PRN ×3 (06:45→16:07)
[2018-12-25] MEDS: Atenolol 25 MG TAB PER TUBE SCH (08:15)
[2018-12-25] MEDS: Clopidogrel Bisulfate 75 MG TAB PO SCH (08:17)
[2018-12-25] MEDS: glipiZIDE 5 MG TAB PER TUBE SCH ×2 (08:17→16:07)
[2018-12-25] MEDS: Atorvastatin Calcium 10 MG TAB PO SCH (08:17)
[2018-12-25] MEDS: Timolol 0.5% Ophth Soln 5 ml Bottle EA EYE SCH ×2 (08:17→20:31)
[2018-12-25] MEDS: Saccharomyces boulardii 250 MG CAP PO SCH (08:17)
[2018-12-25] MEDS: Pantoprazole 40 MG VIAL IVP SCH (08:17)
[2018-12-25] MEDS: Aspirin 325 MG TAB PO SCH (08:17)
[2018-12-25] MEDS: Dorzolamide HCl 2% Ophth Soln 10 ml Bottle R EYE SCH ×3 (08:18→19:57)
[2018-12-25] MEDS ORDERED: NPH, Human Insulin Isophane 300 UNIT/3 ML VIAL SC SCH (09:00)
--- NOTE | 2018-12-25 11:22 | RAD ---
PORTABLE CHEST 1 VIEW: DATE: 12/25/2018. TIME: 10/52 a.m. HISTORY: Fever and aspiration. FINDINGS: Comparison is made with the exam of 12/19/2018. The heart size is borderline. The aorta is tortuous. Bibasilar patchy airspace opacities are seen. No pneumothoraces or large effusions are identified. IMPRESSION: Bibasilar pneumonia. POS: H
[2018-12-25] MEDS: cefTRIAXone\\ROCEPHIN 2 GM in Sodium Chloride 0.9% 100 ML IVPB SCH (12:01)
[2018-12-25] MEDS: Sodium Chloride 0.45% 1,000 ML IV SCH (12:02)
--- NOTE | 2018-12-25 12:58 | PRG ---
DATE OF SERVICE: 12/25/2018 Mr. Velázquez was noted to have a positive H pylori via biopsy. He had gastric ulcers noted at the time of PEG tube placement. At this point, prolonged antibiotics for Helicobacter pylori treatment will likely not be necessary. I would just continue chronic proton pump inhibitor therapy. He will be changed to pantoprazole 40 mg granules per gastrostomy tube daily. Job ID: [id number]
[2018-12-25] MEDS: Latanoprost 0.005% Ophth Soln 2.5 ml Bottle EA EYE SCH (19:50)
[2018-12-25] MEDS: NPH, Human Insulin Isophane 300 UNIT/3 ML VIAL SC SCH (20:08)
[2018-12-25] MEDS ORDERED: Tamsulosin HCl 0.4 MG CAP PO SCH (21:00)
[2018-12-25] MEDS ORDERED: Doxazosin Mesylate 1 MG TAB PER TUBE SCH (21:15)
--- NOTE | 2018-12-25 21:24 | PDOC.PN ---
- Subjective Encounter Start Date: 12/25/18 Encounter Start Time: 09:15 Patient seen and examined for Encephalopathy/Sepsis. Tolerating PEG tube feeds. No new complaints. Vancomycin added earlier due to fever by overnight physician. - Objective Resuscitation Status - Order Detail: 12/20/18 02:59 Resuscitation Status Routine Resuscitation Status: FULL: Full Resuscitation MAR Reviewed: Yes Vital Signs & Weight: Vital Signs (12 hours) Temp Pulse Resp BP BP BP Pulse Ox 12/25/18 20:31 79 147/84 H 12/25/18 20:14 98.4 F 79 18 147/84 H 99 12/25/18 18:12 70 12 100 12/25/18 17:35 98.2 F 73 20 137/83 100 12/25/18 13:56 80 16 12/25/18 12:07 98.8 F 78 18 115/72 100 Weight Admit Weight 180 lb 0.119 oz Weight 180 lb 0.119 oz I&O: 12/24/18 12/25/18 12/26/18 06:59 06:59 06:59 Intake Total 1430 2510 1560 Output Total 950 2 1 Balance 480 2508 1559 Result Diagrams: 12/25/18 04:58 12/25/18 04:58 Additional Labs: Accuchecks 12/25/18 12/25/18 12/25/18 20:04 15:08 11:02 POC Glucose 220 H 223 H 248 H 12/25/18 12/25/18 12/24/18 06:42 00:24 20:03 POC Glucose 329 H 252 H 257 H Radiology Reviewed by me: Yes (CXR - Bibasilar pneumonia) Phys Exam - Physical Examination Constitutional: NAD Respiratory: no wheezing, no rhonchi Bibasilar rales, no accessory muscle use Cardiovascular: RRR, no rub no heaves/pulsations Gastrointestinal: soft, non-tender, no distention, positive bowel sounds Musculoskeletal: no edema Neuro - detailed neuro exam cannot be done due to current mentaton Dx/Plan - Plan DVT proph w/SCDs IMPRESSION: 1. Sepsis secondary to aspiration pneumonia - on IV Vancomycin/Ceftriaxone and Flagyl 2. Toxic metabolic encephalopathy, multifactorial. 3. Acute kidney injury on chronic kidney disease stage 2. improving 4. Significant dehydration with lactic acidosis. 5. Hypernatremia/hyperkalemia/hypophosphatemia. 6. Metabolic acidosis secondary to renal failure and lactic acidosis. 7. Diabetes mellitus type 2. 8. Glaucoma. 9. History of CVA. 10. Hypertension. 11. Physical deconditioning. 12. Moderate PEM. 13. Urinary retention. PLAN: Cont current Atbx Monitor Vancomycin level CXR today due to persistent fever Replace Phosphorus and Potassium Increase NPH dose due to hyperglycemia Cont Glipizide with Q6h sliding scale AM labs Check PVRs Cont other meds as below DC in 24-48 hr if stable Laboratory Tests 12/25/18 04:58 Potassium 3.4 L Phosphorus 1.6 L Review of Systems - Review of Systems Cardiovascular: negative: chest pain, palpitations, orthopnea, paroxysmal nocturnal dyspnea, edema, light headedness, other Gastrointestinal: negative: Nausea, Vomiting, Abdominal Pain, Diarrhea, Constipation, Melena, Hematochezia, Other - Medications/Allergies Allergies/Adverse Reactions: Allergies Allergy/AdvReac Type Severity Reaction Status Date / Time No Known Drug Allergies Allergy Verified 12/20/18 02:13 Medications: Current Medications Acetaminophen (Tylenol) 650 mg PO Q4H PRN PRN Reason: Fever/Mild Pain Last Admin: 12/25/18 16:42 Dose: 650 mg Albuterol/Ipratropium (Duoneb) 3 ml NEB [id number] [facility] Last Admin: 12/25/18 18:12 Dose: 3 ml Albuterol/Ipratropium (Duoneb) 3 ml NEB [id number] PRN PRN Reason: SOB &/or Wheezing Artificial Tears (Liquitears 15ml Bottle) 0 drop EA EYE DAILYPRN PRN PRN Reason: Dry Eyes Aspirin (Aspirin) 325 mg PO QA-[facility] Last Admin: 12/25/18 08:17 Dose: 325 mg Atenolol (Tenormin) 25 mg PER TUBE DAILY [facility] Last Admin: 12/25/18 08:15 Dose: Not Given Atorvastatin Calcium (Lipitor) 10 mg PO DAILY [facility] Last Admin: 12/25/18 08:17 Dose: 10 mg Bisacodyl (Dulcolax) 10 mg [place] DAILYPRN PRN PRN Reason: Constipation Bisacodyl (Dulcolax) 10 mg PO DAILYPRN PRN PRN Reason: Constipation Clopidogrel Bisulfate (Plavix) 75 mg PO DAILY [facility] Last Admin: 12/25/18 08:17 Dose: 75 mg Dextrose/Water (Dextrose 50%) 25 gm IVP PRN PRN PRN Reason: HYPOGLYCEMIA PROTOCOL Dorzolamide HCl (Trusopt 2% Ophth Soln) 1 drop R EYE TID [facility] Last Admin: 12/25/18 19:57 Dose: 1 drop Doxazosin Mesylate (Cardura) 1 mg PER TUBE HS [facility] Doxazosin Mesylate (Cardura) 1 mg PER TUBE NOW [facility] Stop: 12/25/18 23:15 Glipizide (Glucotrol) 5 mg PER TUBE BID-AC [facility] Last Admin: 12/25/18 16:07 Dose: 5 mg Glucagon (Glucagon) 1 mg IM PRN PRN PRN Reason: Dry Eyes Guaifenesin (Robitussin Sf) 200 mg PO Q4H PRN PRN Reason: Cough Hydralazine HCl (Apresoline) 10 mg SLOW IVP Q4H PRN PRN Reason: SBP > 180 and HR < 70 Dextrose/Water (D5w) 1,000 mls @ 0 mls/hr IV .Q0M PRN PRN Reason: Hypoglycemia Metronidazole 500 mg/ Device 100 mls @ 100 mls/hr IVPB Q8H [facility] Last Admin: 12/25/18 16:11 Dose: 100 mls Ceftriaxone Sodium 2 gm/ (Sodium Chloride) 100 mls @ 200 mls/hr IVPB Q24HR [facility] Last Admin: 12/25/18 12:01 Dose: 100 mls Vancomycin HCl 1 gm/ Device 200 mls @ 200 mls/hr IVPB 0500,1700 [facility] Last Admin: 12/25/18 16:05 Dose: 200 mls Sodium Chloride (1/2 Normal Saline) 1,000 mls @ 30 mls/hr IV .Q24H [facility] Last Admin: 12/25/18 12:02 Dose: 1,000 mls Insulin Human Lispro (Humalog) 0 units SC .MODERATE SLIDING SC PRN PRN Reason: Moderate Correctional Scale Last Admin: 12/25/18 16:07 Dose: 4 unit Insulin Human Lispro (Humalog) 0 units SC .BEDTIME SLIDING SC PRN PRN Reason: Bedtime Correctional Scale Last Admin: 12/25/18 00:53 Dose: 3 unit Insulin Human NPH (Humulin N) 10 unit SC BID [facility] Last Admin: 12/25/18 20:08 Dose: 10 unit Latanoprost (Xalatan 0.005% Ophth Soln) 1 drop EA EYE HS [facility] Last Admin: 12/25/18 19:50 Dose: 1 drop Miscellaneous Medication (Pharmacy To Dose) 1 each IVPB PRN PRN PRN Reason: . Pantoprazole Sodium (Protonix) 40 mg PER TUBE DAILY [facility] Saccharomyces Boulardii (Florastor) 250 mg PO DAILY [facility] Last Admin: 12/25/18 08:17 Dose: 250 mg Scopolamine (Transderm Scop) 1.5 mg TOP Q3D [facility] Last Admin: 12/23/18 08:43 Dose: 1.5 mg Senna/Docusate Sodium (Senokot S) 2 tab PO BID PRN PRN Reason: Constipation Sodium Chloride ([place] Nasal [place] 0.65%) 0 ml EA NARE QIDPRN PRN PRN Reason: Nasal Congestion Sodium Chloride (Flush - Normal Saline) 10 ml IVF Q12HR [facility] Last Admin: 12/25/18 20:34 Dose: 10 ml Sodium Chloride (Flush - Normal Saline) 10 ml IVF PRN PRN PRN Reason: Saline Flush Throat Lozenges (Cepastat Lozenges) 1 jomar PO Q2H PRN PRN Reason: Sore Throat Timolol Maleate (Timoptic 0.5% Ophth Soln) 1 drop EA EYE BID [facility] Last Admin: 12/25/18 20:31 Dose: 1 drop
[2018-12-26] MEDS: Vancomycin HCl 1 GM in Premix Bag 1 BAG IVPB SCH ×2 (04:38→17:14)
[2018-12-26] MEDS: HumaLOG 300 UNITS/3 ML VIAL SC PRN ×3 (06:02→16:44)
[2018-12-26 06:15] LABS: Band 5 % (5-11); Eosinophils 3 % (0-10); Hemoglobin 10.9 g/dL (14.0-18.0); Lymphocytes 17 % (21-51); MDiff Complete? YES; Mean Corpuscular HGB CONC 31.6 g/dL (32.0-36.0); Mean Corpuscular Volume 91.8 fL (78.0-98.0); Mean Platelet Volume 12.4 fL (7.4-10.4); Monocytes 6 % (0-10); Neutrophil 69 % (42-75); Platelet Count 98 thou/uL (130-400); Platelet Morphology Comment Appears Decreased; RBC Distribution Width 14.2 % (11.5-14.5); RBC Morphology Normal; Red Blood Cell (RBC) Count 3.77 mill/uL (4.70-6.10)
[2018-12-26 06:26] LABS: ALT (SGPT) 15 U/L (8-55); AST (SGOT) 12 U/L (5-34); Albumin 2.6 g/dL (3.4-4.8); Alkaline Phosphatase 122 U/L (40-150); Anion Gap 11 mmol/L (10-20); BUN (Urea Nitrogen) 20 mg/dL (8.4-25.7); Bilirubin, Total 0.3 mg/dL (0.2-1.2); Calc. Creatinine Clearance 92 mL/min (70-130); Calcium 8.3 mg/dL (7.8-10.44); Carbon Dioxide 25 mmol/L (23-31); Chloride 116 mmol/L (98-107); Estimated GFR-MDRD Greater than 90; Globulin 2.8 g/dL (2.4-3.5); Glucose 266 mg/dL (80-115); Potassium 3.5 mmol/L (3.5-5.1); Protein, Total 5.4 g/dL (5.8-8.1); Sodium 148 mmol/L (136-145)
[2018-12-26] MEDS ORDERED: Potassium Phosphate 15 MMOL in Sodium Chloride 0.9% 250 ML 250 ML IVPB SCH (07:00)
[2018-12-26] MEDS: metroNIDAZOLE 500 MG in Premix Bag 1 BAG IVPB SCH ×3 (07:40→23:34)
[2018-12-26] MEDS: Atorvastatin Calcium 10 MG TAB PO SCH (08:04)
[2018-12-26] MEDS: Aspirin 325 MG TAB PO SCH (08:04)
[2018-12-26] MEDS: glipiZIDE 5 MG TAB PER TUBE SCH ×2 (08:04→16:43)
[2018-12-26] MEDS: Pantoprazole 40 MG GRANULES PACKET PER TUBE SCH (08:05)
[2018-12-26] MEDS: Scopolamine 1.5 mg/72 hour Patch TOP SCH (08:05)
[2018-12-26] MEDS: Clopidogrel Bisulfate 75 MG TAB PO SCH (08:05)
[2018-12-26] MEDS: Saccharomyces boulardii 250 MG CAP PO SCH (08:05)
[2018-12-26] MEDS: Atenolol 25 MG TAB PER TUBE SCH (08:06)
[2018-12-26] MEDS: Timolol 0.5% Ophth Soln 5 ml Bottle EA EYE SCH ×2 (08:06→20:42)
[2018-12-26] MEDS: Dorzolamide HCl 2% Ophth Soln 10 ml Bottle R EYE SCH ×3 (08:48→20:42)
[2018-12-26] MEDS: NPH, Human Insulin Isophane 300 UNIT/3 ML VIAL SC SCH ×2 (08:55→20:43)
[2018-12-26] MEDS: cefTRIAXone\\ROCEPHIN 2 GM in Sodium Chloride 0.9% 100 ML IVPB SCH (11:06)
[2018-12-26] MEDS: Sodium Chloride 0.45% 1,000 ML IV SCH ×2 (11:12→23:34)
[2018-12-26 16:54] LABS: Vancomycin, Trough 17.7 ug/mL
--- NOTE | 2018-12-26 19:57 | PDOC.PN ---
- Subjective Encounter Start Date: 12/26/18 Encounter Start Time: 08:45 -: non-verbal Patient seen and examined for Aspiration Pneumonia with Sepsis. No new episodes of fever. On tube feeds. No new complaints. No overnight events - Objective Resuscitation Status - Order Detail: 12/20/18 02:59 Resuscitation Status Routine Resuscitation Status: FULL: Full Resuscitation MAR Reviewed: Yes Vital Signs & Weight: Vital Signs (12 hours) Temp Pulse Resp BP BP BP Pulse Ox 12/26/18 18:30 78 16 100 12/26/18 16:00 98.2 F 69 18 132/81 100 12/26/18 15:23 70 18 100 12/26/18 11:10 66 16 100 12/26/18 08:07 98.2 F 89 20 108/76 100 12/26/18 08:06 86 104/70 12/26/18 08:00 98.2 F Weight Admit Weight 180 lb 0.119 oz Weight 180 lb 0.119 oz I&O: 12/25/18 12/26/18 12/27/18 06:59 06:59 06:59 Intake Total 2350 2980 1742 Output Total 2 3 Balance 2348 2977 1742 Result Diagrams: 12/27/18 05:28 12/27/18 04:40 Additional Labs: Accuchecks 12/26/18 12/26/18 12/26/18 16:23 11:32 04:27 POC Glucose 222 H 269 H 232 H 12/26/18 12/25/18 00:56 20:04 POC Glucose 196 H 220 H Phys Exam - Physical Examination Constitutional: NAD Respiratory: no wheezing, no rhonchi Bibasilar rales with scat rhonchi Cardiovascular: RRR, no rub Gastrointestinal: soft, positive bowel sounds Dx/Plan - Plan DVT proph w/SCDs (no on Lovenox due to low platelets) IMPRESSION: 1. Sepsis secondary to aspiration pneumonia 2. Toxic metabolic encephalopathy, multifactorial. 3. Acute kidney injury on chronic kidney disease stage 2. improving 4. Significant dehydration with lactic acidosis. 5. Hypernatremia/hyperkalemia/hypophosphatemia. 6. Metabolic acidosis secondary to renal failure and lactic acidosis. 7. Diabetes mellitus type 2. 8. Glaucoma. 9. History of CVA. 10. Hypertension. 11. Physical deconditioning. 12. Moderate PEM. 13. Urinary retention - resolved. Repeat postvoid 116ml PLAN: Cont current Vancomycin/Ceftriaxone and Flagyl Vancomycin level monitoring Cont NPH at 10 units BID/Glipizide with Q6h sliding scale AM labs Cont other meds as below DC in 24-48 hr if stable Review of Systems - Review of Systems Cardiovascular: negative: chest pain, palpitations, orthopnea, paroxysmal nocturnal dyspnea, edema, light headedness, other Gastrointestinal: negative: Nausea, Vomiting, Abdominal Pain, Diarrhea, Constipation, Melena, Hematochezia, Other - Medications/Allergies Allergies/Adverse Reactions: Allergies Allergy/AdvReac Type Severity Reaction Status Date / Time No Known Drug Allergies Allergy Verified 12/20/18 02:13 Medications: Current Medications Acetaminophen (Tylenol) 650 mg PO Q4H PRN PRN Reason: Fever/Mild Pain Last Admin: 12/25/18 16:42 Dose: 650 mg Albuterol/Ipratropium (Duoneb) 3 ml NEB [id number] [facility] Last Admin: 12/26/18 18:30 Dose: 3 ml Albuterol/Ipratropium (Duoneb) 3 ml NEB [id number] PRN PRN Reason: SOB &/or Wheezing Artificial Tears (Liquitears 15ml Bottle) 0 drop EA EYE DAILYPRN PRN PRN Reason: Dry Eyes Aspirin (Aspirin) 325 mg PO QAM-[facility] Last Admin: 12/26/18 08:04 Dose: 325 mg Atenolol (Tenormin) 25 mg PER TUBE DAILY [facility] Last Admin: 12/26/18 08:06 Dose: 25 mg Atorvastatin Calcium (Lipitor) 10 mg PO DAILY [facility] Last Admin: 12/26/18 08:04 Dose: 10 mg Bisacodyl (Dulcolax) 10 mg [place] DAILYPRN PRN PRN Reason: Constipation Bisacodyl (Dulcolax) 10 mg PO DAILYPRN PRN PRN Reason: Constipation Clopidogrel Bisulfate (Plavix) 75 mg PO DAILY [facility] Last Admin: 12/26/18 08:05 Dose: 75 mg Dextrose/Water (Dextrose 50%) 25 gm IVP PRN PRN PRN Reason: HYPOGLYCEMIA PROTOCOL Dorzolamide HCl (Trusopt 2% Ophth Soln) 1 drop R EYE TID [facility] Last Admin: 12/26/18 14:29 Dose: 1 drop Glipizide (Glucotrol) 5 mg PER TUBE BID-AC [facility] Last Admin: 12/26/18 16:43 Dose: 5 mg Glucagon (Glucagon) 1 mg IM PRN PRN PRN Reason: Dry Eyes Guaifenesin (Robitussin Sf) 200 mg PO Q4H PRN PRN Reason: Cough Hydralazine HCl (Apresoline) 10 mg SLOW IVP Q4H PRN PRN Reason: SBP > 180 and HR < 70 Dextrose/Water (D5w) 1,000 mls @ 0 mls/hr IV .Q0M PRN PRN Reason: Hypoglycemia Metronidazole 500 mg/ Device 100 mls @ 100 mls/hr IVPB Q8H [facility] Last Admin: 12/26/18 14:29 Dose: 100 mls Ceftriaxone Sodium 2 gm/ (Sodium Chloride) 100 mls @ 200 mls/hr IVPB Q24HR [facility] Last Admin: 12/26/18 11:06 Dose: 100 mls Vancomycin HCl 1 gm/ Device 200 mls @ 200 mls/hr IVPB 0500,1700 [facility] Last Admin: 12/26/18 17:14 Dose: 200 mls Sodium Chloride (1/2 Normal Saline) 1,000 mls @ 30 mls/hr IV .Q24H [facility] Last Admin: 12/26/18 11:12 Dose: Not Given Insulin Human Lispro (Humalog) 0 units SC .MODERATE SLIDING SC PRN PRN Reason: Moderate Correctional Scale Last Admin: 12/26/18 16:44 Dose: 4 unit Insulin Human Lispro (Humalog) 0 units SC .BEDTIME SLIDING SC PRN PRN Reason: Bedtime Correctional Scale Last Admin: 12/25/18 00:53 Dose: 3 unit Insulin Human NPH (Humulin N) 10 unit SC BID [facility] Last Admin: 12/26/18 08:55 Dose: 10 unit Latanoprost (Xalatan 0.005% Ophth Soln) 1 drop EA EYE [facility] Last Admin: 12/25/18 19:50 Dose: 1 drop Miscellaneous Medication (Pharmacy To Dose) 1 each IVPB PRN PRN PRN Reason: . Pantoprazole Sodium (Protonix) 40 mg PER TUBE DAILY [facility] Last Admin: 12/26/18 08:05 Dose: 40 mg Saccharomyces Boulardii (Florastor) 250 mg PO DAILY [facility] Last Admin: 12/26/18 08:05 Dose: 250 mg Scopolamine (Transderm Scop) 1.5 mg TOP Q3D [facility] Last Admin: 12/26/18 08:05 Dose: 1.5 mg Senna/Docusate Sodium (Senokot S) 2 tab PO BID PRN PRN Reason: Constipation Sodium Chloride ([place] Nasal [place] 0.65%) 0 ml EA NARE QIDPRN PRN PRN Reason: Nasal Congestion Sodium Chloride (Flush - Normal Saline) 10 ml IVF Q12HR [facility] Last Admin: 12/26/18 08:07 Dose: 10 ml Sodium Chloride (Flush - Normal Saline) 10 ml IVF PRN PRN PRN Reason: Saline Flush Throat Lozenges (Cepastat Lozenges) 1 jomar PO Q2H PRN PRN Reason: Sore Throat Timolol Maleate (Timoptic 0.5% Ophth Soln) 1 drop EA EYE BID [facility] Last Admin: 12/26/18 08:06 Dose: 1 drop
[2018-12-26] MEDS: Latanoprost 0.005% Ophth Soln 2.5 ml Bottle EA EYE SCH (20:42)
[2018-12-26] MEDS ORDERED: Doxazosin Mesylate 1 MG TAB PER TUBE SCH (21:00)
[2018-12-27 05:11] LABS: ALT (SGPT) 15 U/L (8-55); AST (SGOT) 17 U/L (5-34); Albumin 2.4 g/dL (3.4-4.8); Alkaline Phosphatase 103 U/L (40-150); Anion Gap 14 mmol/L (10-20); BUN (Urea Nitrogen) 19 mg/dL (8.4-25.7); Bilirubin, Total 0.2 mg/dL (0.2-1.2); Calc. Creatinine Clearance 103 mL/min (70-130); Carbon Dioxide 22 mmol/L (23-31); Chloride 118 mmol/L (98-107); Estimated GFR-MDRD Greater than 90; Globulin 2.9 g/dL (2.4-3.5); Glucose 146 mg/dL (80-115); Magnesium 2.5 mg/dL (1.6-2.6); Phosphorus 2.8 mg/dL (2.3-4.7); Potassium 4.8 mmol/L (3.5-5.1); Protein, Total 5.3 g/dL (5.8-8.1); Sodium 149 mmol/L (136-145)
[2018-12-27] MEDS: Vancomycin HCl 1 GM in Premix Bag 1 BAG IVPB SCH ×2 (05:15→15:14)
[2018-12-27 06:25] LABS: #Basophils 0.1 thou/uL (0.0-0.2); #Eosinphils 0.2 thou/uL (0.0-0.7); #Lymphocytes 1.5 thou/uL (1.20-3.40); #Monocytes 0.6 thou/uL (0.11-0.59); #Neutrophils 5.8 thou/uL (1.40-6.50); %Basophils 0.7 % (0.0-1.0); %Eosinophils 2.8 % (0.0-10.0); %Lymphocytes 17.8 % (21.0-51.0); %Monocytes 7.6 % (0.0-10.0); %Neutrophils 71.2 % (42.0-75.0); Hemoglobin 10.6 g/dL (14.0-18.0); Mean Corpuscular HGB CONC 31.3 g/dL (32.0-36.0); Mean Corpuscular Hemoglobin 29.2 pg (27.0-31.0); Mean Corpuscular Volume 93.1 fL (78.0-98.0); Mean Platelet Volume 12.2 fL (7.4-10.4); Platelet Count 109 thou/uL (130-400); RBC Distribution Width 14.5 % (11.5-14.5); Red Blood Cell (RBC) Count 3.64 mill/uL (4.70-6.10); White Blood Cell (WBC) Count 8.2 thou/uL (4.8-10.8)
[2018-12-27] MEDS: metroNIDAZOLE 500 MG in Premix Bag 1 BAG IVPB SCH ×3 (06:37→22:41)
[2018-12-27] MEDS: Atenolol 25 MG TAB PER TUBE SCH (07:58)
[2018-12-27] MEDS: Clopidogrel Bisulfate 75 MG TAB PO SCH (07:58)
[2018-12-27] MEDS: Aspirin 325 MG TAB PO SCH (07:59)
[2018-12-27] MEDS: glipiZIDE 5 MG TAB PER TUBE SCH ×2 (07:59→15:14)
[2018-12-27] MEDS: Dorzolamide HCl 2% Ophth Soln 10 ml Bottle R EYE SCH ×3 (07:59→22:16)
[2018-12-27] MEDS: Saccharomyces boulardii 250 MG CAP PO SCH (07:59)
[2018-12-27] MEDS: Atorvastatin Calcium 10 MG TAB PO SCH (07:59)
[2018-12-27] MEDS: Pantoprazole 40 MG GRANULES PACKET PER TUBE SCH (08:00)
[2018-12-27] MEDS: Timolol 0.5% Ophth Soln 5 ml Bottle EA EYE SCH ×2 (08:00→22:16)
[2018-12-27] MEDS: NPH, Human Insulin Isophane 300 UNIT/3 ML VIAL SC SCH ×2 (08:00→22:17)
[2018-12-27] MEDS: cefTRIAXone\\ROCEPHIN 2 GM in Sodium Chloride 0.9% 100 ML IVPB SCH (10:30)
[2018-12-27] MEDS: Dextrose 5% in Water 1,000 ML IV SCH (11:18)
[2018-12-27] MEDS: HumaLOG 300 UNITS/3 ML VIAL SC PRN (11:29)
[2018-12-27] MEDS ORDERED: Sodium Bicarbonate Tab 325 MG TAB PER TUBE PRN (11:39)
[2018-12-27] MEDS ORDERED: Pancrelipase DR 12000 1 CAP FS PRN (11:39)
--- NOTE | 2018-12-27 14:55 | PDOC.PN ---
- Subjective Encounter Start Date: 12/27/18 Encounter Start Time: 08:20 Pt seen for followup re: acute metabolic encephalopathy. Pt waking up to sternal rub but falling asleep right away, unable to complete ROS. - Objective Resuscitation Status - Order Detail: 12/20/18 02:59 Resuscitation Status Routine Resuscitation Status: FULL: Full Resuscitation MAR Reviewed: Yes Vital Signs & Weight: Vital Signs (12 hours) Temp Pulse Resp BP Pulse Ox 12/27/18 13:53 77 16 100 12/27/18 10:25 70 20 97 12/27/18 08:41 99.0 F 86 20 127/78 100 12/27/18 08:00 88 100 12/27/18 07:58 88 12/27/18 07:56 95 12/27/18 07:55 62 16 95 12/27/18 04:00 98.5 F 75 20 124/75 97 Weight Admit Weight 180 lb 0.119 oz Weight 180 lb 0.119 oz I&O: 12/26/18 12/27/18 12/28/18 06:59 06:59 06:59 Intake Total 2980 3272 210 Output Total 3 Balance 2977 3272 210 Result Diagrams: 12/27/18 05:28 12/27/18 04:40 Additional Labs: Accuchecks 12/27/18 12/27/18 12/26/18 11:29 04:53 20:48 POC Glucose 225 H 139 H 196 H 12/26/18 16:23 POC Glucose 222 H Labs reviewed by me Phys Exam - Physical Examination Constitutional: NAD Dry mucosae Neck: supple Respiratory: clear to auscultation bilateral Cardiovascular: RRR Gastrointestinal: soft Musculoskeletal: edema present Deviation from normal: Unable to assess Dx/Plan (1) Acute metabolic encephalopathy Code(s): G93.41 - METABOLIC ENCEPHALOPATHY Status: Acute Comment: Likely secondary to dehydration/hypernatremia (2) Dehydration Code(s): E86.0 - DEHYDRATION Status: Acute Comment: bolus feeds started (3) Aspiration pneumonia Code(s): J69.0 - PNEUMONITIS DUE TO INHALATION OF FOOD AND VOMIT Status: Acute Comment: continue IV ceftriazone and IV vancomycin, add IV Flagyl (4) Hypernatremia Code(s): E87.0 - HYPEROSMOLALITY AND HYPERNATREMIA Status: Acute Comment: start IV D5W, recheck sodium level (5) Diabetes type 2, controlled Code(s): E11.9 - TYPE 2 DIABETES MELLITUS WITHOUT COMPLICATIONS Status: Chronic Comment: continue accuchecks and insulin sliding scale (6) HTN (hypertension) Code(s): I10 - ESSENTIAL (PRIMARY) HYPERTENSION Status: Chronic Qualifiers: Comment: controlled - Plan * . Review of Systems - Medications/Allergies Allergies/Adverse Reactions: Allergies Allergy/AdvReac Type Severity Reaction Status Date / Time No Known Drug Allergies Allergy Verified 12/20/18 02:13 Medications: Current Medications Acetaminophen (Tylenol) 650 mg PO Q4H PRN PRN Reason: Fever/Mild Pain Last Admin: 12/25/18 16:42 Dose: 650 mg Albuterol/Ipratropium (Duoneb) 3 ml NEB [id number] [facility] Last Admin: 12/27/18 13:53 Dose: 3 ml Albuterol/Ipratropium (Duoneb) 3 ml NEB [id number] PRN PRN Reason: SOB &/or Wheezing Lipase/Protease/Amylase (Christopher Camargo [id number]) 1 cap FS .PER PROTOCOL PRN PRN Reason: TUBE OCCLUSION PROTOCOL Artificial Tears (Liquitears 15ml Bottle) 0 drop EA EYE DAILYPRN PRN PRN Reason: Dry Eyes Aspirin (Aspirin) 325 mg PO QAM-WM [facility] Last Admin: 12/27/18 07:59 Dose: 325 mg Atenolol (Tenormin) 25 mg PER TUBE DAILY [facility] Last Admin: 12/27/18 07:58 Dose: 25 mg Atorvastatin Calcium (Lipitor) 10 mg PO DAILY [facility] Last Admin: 12/27/18 07:59 Dose: 10 mg Bisacodyl (Dulcolax) 10 mg [place] DAILYPRN PRN PRN Reason: Constipation Bisacodyl (Dulcolax) 10 mg PO DAILYPRN PRN PRN Reason: Constipation Clopidogrel Bisulfate (Plavix) 75 mg PO DAILY [facility] Last Admin: 12/27/18 07:58 Dose: 75 mg Dextrose/Water (Dextrose 50%) 25 gm IVP PRN PRN PRN Reason: HYPOGLYCEMIA PROTOCOL Dorzolamide HCl (Trusopt 2% Ophth Soln) 1 drop R EYE TID [facility] Last Admin: 12/27/18 07:59 Dose: 1 drop Glipizide (Glucotrol) 5 mg PER TUBE BID-AC [facility] Last Admin: 12/27/18 07:59 Dose: 5 mg Glucagon (Glucagon) 1 mg IM PRN PRN PRN Reason: Dry Eyes Guaifenesin (Robitussin Sf) 200 mg PO Q4H PRN PRN Reason: Cough Hydralazine HCl (Apresoline) 10 mg SLOW IVP Q4H PRN PRN Reason: SBP > 180 and HR < 70 Dextrose/Water (D5w) 1,000 mls @ 0 mls/hr IV .Q0M PRN PRN Reason: Hypoglycemia Metronidazole 500 mg/ Device 100 mls @ 100 mls/hr IVPB Q8H [facility] Last Admin: 12/27/18 06:37 Dose: 100 mls Ceftriaxone Sodium 2 gm/ (Sodium Chloride) 100 mls @ 200 mls/hr IVPB Q24HR [facility] Last Admin: 12/27/18 10:30 Dose: 100 mls Vancomycin HCl 1 gm/ Device 200 mls @ 200 mls/hr IVPB 0500,1700 [facility] Last Admin: 12/27/18 05:15 Dose: 200 mls Dextrose/Water (D5w) 1,000 mls @ 50 mls/hr IV .Q20H [facility] Last Admin: 12/27/18 11:18 Dose: 1,000 mls Insulin Human Lispro (Humalog) 0 units SC .MODERATE SLIDING SC PRN PRN Reason: Moderate Correctional Scale Last Admin: 12/27/18 11:29 Dose: 4 unit Insulin Human Lispro (Humalog) 0 units SC .BEDTIME SLIDING SC PRN PRN Reason: Bedtime Correctional Scale Last Admin: 12/25/18 00:53 Dose: 3 unit Insulin Human NPH (Humulin N) 10 unit SC BID [facility] Last Admin: 12/27/18 08:00 Dose: 10 unit Latanoprost (Xalatan 0.005% Ophth Soln) 1 drop EA EYE [facility] Last Admin: 12/26/18 20:42 Dose: 1 drop Miscellaneous Medication (Pharmacy To Dose) 1 each IVPB PRN PRN PRN Reason: . Pantoprazole Sodium (Protonix) 40 mg PER TUBE DAILY [facility] Last Admin: 12/27/18 08:00 Dose: 40 mg Saccharomyces Boulardii (Florastor) 250 mg PO DAILY [facility] Last Admin: 12/27/18 07:59 Dose: 250 mg Scopolamine (Transderm Scop) 1.5 mg TOP Q3D [facility] Last Admin: 12/26/18 08:05 Dose: 1.5 mg Senna/Docusate Sodium (Senokot S) 2 tab PO BID PRN PRN Reason: Constipation Sodium Bicarbonate (Bicarbonate, Sodium) 650 mg PER TUBE .PER PROTOCOL PRN PRN Reason: ENTERAL TUBE OCCLUSION Sodium Chloride ([place] Nasal [place] 0.65%) 0 ml EA NARE QIDPRN PRN PRN Reason: Nasal Congestion Sodium Chloride (Flush - Normal Saline) 10 ml IVF Q12HR [facility] Last Admin: 12/27/18 08:00 Dose: Not Given Sodium Chloride (Flush - Normal Saline) 10 ml IVF PRN PRN PRN Reason: Saline Flush Throat Lozenges (Cepastat Lozenges) 1 jomar PO Q2H PRN PRN Reason: Sore Throat Timolol Maleate (Timoptic 0.5% Ophth Soln) 1 drop EA EYE BID [facility] Last Admin: 12/27/18 08:00 Dose: 1 drop
[2018-12-27] MEDS: Latanoprost 0.005% Ophth Soln 2.5 ml Bottle EA EYE SCH (22:16)
[2018-12-28 05:10] LABS: Vancomycin, Trough 21.5 ug/mL
[2018-12-28] MEDS: Vancomycin HCl 1 GM in Premix Bag 1 BAG IVPB SCH (05:16)
[2018-12-28] MEDS ORDERED: Vancomycin HCl 750 MG in Sodium Chloride 0.9% 250 ML 250 ML IVPB SCH (06:00)
[2018-12-28] MEDS: Dextrose 5% in Water 1,000 ML IV SCH (06:03)
[2018-12-28 08:40] LABS: #Eosinphils 0.2 thou/uL (0.0-0.7); #Lymphocytes 1.6 thou/uL (1.20-3.40); #Monocytes 0.7 thou/uL (0.11-0.59); #Neutrophils 4.3 thou/uL (1.40-6.50); %Basophils 0.6 % (0.0-1.0); %Eosinophils 2.3 % (0.0-10.0); %Lymphocytes 23.5 % (21.0-51.0); %Neutrophils 63.6 % (42.0-75.0); Hemoglobin 9.7 g/dL (14.0-18.0); Mean Corpuscular HGB CONC 31.5 g/dL (32.0-36.0); Mean Corpuscular Hemoglobin 28.8 pg (27.0-31.0); Mean Corpuscular Volume 91.4 fL (78.0-98.0); Mean Platelet Volume 11.4 fL (7.4-10.4); Platelet Count 107 thou/uL (130-400); RBC Distribution Width 14.3 % (11.5-14.5); Red Blood Cell (RBC) Count 3.37 mill/uL (4.70-6.10); White Blood Cell (WBC) Count 6.7 thou/uL (4.8-10.8)
[2018-12-28 08:45] LABS: Anion Gap 8 mmol/L (10-20); BUN (Urea Nitrogen) 14 mg/dL (8.4-25.7); Calc. Creatinine Clearance 115 mL/min (70-130); Calcium 7.6 mg/dL (7.8-10.44); Carbon Dioxide 23 mmol/L (23-31); Chloride 113 mmol/L (98-107); Estimated GFR-MDRD Greater than 90; Glucose 151 mg/dL (80-115); Potassium 3.3 mmol/L (3.5-5.1); Sodium 141 mmol/L (136-145)
[2018-12-28] MEDS: Clopidogrel Bisulfate 75 MG TAB PO SCH (09:27)
[2018-12-28] MEDS: glipiZIDE 5 MG TAB PER TUBE SCH ×2 (09:27→16:06)
[2018-12-28] MEDS: Aspirin 325 MG TAB PO SCH (09:27)
[2018-12-28] MEDS: Atenolol 25 MG TAB PER TUBE SCH (09:27)
[2018-12-28] MEDS: Saccharomyces boulardii 250 MG CAP PO SCH (09:27)
[2018-12-28] MEDS: Atorvastatin Calcium 10 MG TAB PO SCH (09:27)
[2018-12-28] MEDS: Pantoprazole 40 MG GRANULES PACKET PER TUBE SCH (09:27)
[2018-12-28] MEDS: Timolol 0.5% Ophth Soln 5 ml Bottle EA EYE SCH (09:28)
[2018-12-28] MEDS: Dorzolamide HCl 2% Ophth Soln 10 ml Bottle R EYE SCH ×2 (09:28→16:07)
[2018-12-28] MEDS: NPH, Human Insulin Isophane 300 UNIT/3 ML VIAL SC SCH (09:29)
[2018-12-28] MEDS ORDERED: Potassium Chloride 20 MEQ TAB PER TUBE SCH (09:30)
[2018-12-28] MEDS: metroNIDAZOLE 500 MG in Premix Bag 1 BAG IVPB SCH (09:38)
[2018-12-28] MEDS ORDERED: metroNIDAZOLE 500 MG TAB PER TUBE SCH (15:00)
[2018-12-28 16:05] VITALS: BP 113/76; TEMP 98.2
--- NOTE | 2018-12-28 16:38 | DIS ---
DATE OF ADMISSION: 12/19/2018 DATE OF DISCHARGE: 12/28/2018 DISCHARGE DIAGNOSES: 1. Acute metabolic encephalopathy. 2. Acute kidney injury. 3. Dehydration. 4. Oropharyngeal dysphagia. 5. Gastric ulcer. 6. Duodenal ulcers. 7. Hiatal hernia. 8. Aspiration pneumonia. 9. Sepsis. 10. Moderate protein-calorie malnutrition. 11. Urinary retention. 12. Helicobacter pylori, chronic active gastritis. CONDITION OF PATIENT ON THE DAY OF DISCHARGE: Stable. I assessed Mr. Velázquez on the day of discharge. He is awake, answering questions. He denies any chest pain or shortness of breath. Vital signs are stable. S1 and S2 are heard, regular. Lungs are clear to auscultation bilaterally. DISCHARGE MEDICATIONS: 1. Vitamin patch every three days. 2. Acetaminophen 650 mg every 4 hours as needed. 3. Aspirin 325 mg daily. 4. Plavix 75 mg daily. 5. Dorzolamide eyedrops one drop to right eye three times a day. 6. Glucagon p.r.n. 7. Latanoprost eyedrops one drop to each eye at bedtime. 8. Mirtazapine 7.5 mg at bedtime. 9. Polyvinyl alcohol p.r.n. 10. Simvastatin 20 mg daily. 11. Timolol one drop to each eye two times a day. 12. Trazodone 25 mg at bedtime. 13. Atenolol 25 mg per tube daily. 14. Omnicef 300 mg per tube two times a day for 5 more days. 15. Furosemide 40 mg per tube. 16. Glipizide 5 mg per tube two times a day. 17. Flagyl 500 mg per tube three times a day for 5 more days. 18. Humulin N 10 units 2 times a day. 19. Protonix 40 mg per tube daily. 20. Potassium chloride 10 mEq per tube daily. 21. Florastor 250 mg daily. CONSULTATIONS DURING THIS HOSPITALIZATION: Gastroenterology, Dr. Dalton. HOSPITAL COURSE: Mr. Velázquez is a pleasant 68-year-old gentleman who was admitted to [facility] on December 19, 2018 for dehydration, leukocytosis, hypernatremia, hyperchloremic metabolic acidosis and acute metabolic encephalopathy. Please refer to Dr. Eddy's history and physical note dated December 20, 2018 for further details. He was seen by Gastroenterology Service for a possible PEG tube placement. On Addie 12, he underwent EGD with PEG tube placement and biopsy. He was found to have a 7 mm gastric antrum ulcer, hiatal hernia, and two ulcers at the junction of 1st and 2nd portions of the duodenum measuring 5 to 10 mm. Biopsy was positive for Helicobacter pylori, chronic active gastritis. Gastroenterology Service recommended continuing him on PPI. Prolonged antibiotic therapy for Helicobacter pylori treatment was deemed not to be necessary. The patient improved clinically with bolus feeds as well as intravenous fluids. Chest x-ray done on December 25, 2018 showed bibasilar pneumonia, most likely aspiration pneumonia. He was treated with intravenous antibiotics and is being stepped down to oral antibiotics at the time of discharge. LABORATORY DATA: On the day of discharge, Mr. Velázquez has white count of 6700, hemoglobin 9.7, platelet count 107,000, sodium 141, potassium 3.3, which is being replaced and creatinine 0.71. He had 1 out of 2 blood cultures growing coagulase-negative Staphylococcus, most likely contaminant. Many thanks for allowing me to participate in your patient's care. Please feel free to contact me with any questions or concerns. DISCHARGE DESTINATION: [facility], from where patient was admitted to the hospital. TIME SPENT: Total amount of time spent coordinating this discharge: 33 minutes. Job ID: [id number]
[2018-12-28] MEDS ORDERED: Cefdinir 300 MG CAP PER TUBE SCH (21:00)
== END 2018-12-28 17:20 | DRG 871 ==
LOC: ERS 18:29 → ERHOLD 20:47 → T4-A 23:42
PROVIDERS: ADMIT Hospitalist; ATTEND Hospitalist
PROC: 0DH63UZ Insertion of Feeding Device into Stomach, Percutaneous Approach (ICD-10-PCS; principal; 2018-12-22)
PROC: 0DB78ZX Excision of Stomach, Pylorus, Via Natural or Artificial Opening Endoscopic, Diagnostic (ICD-10-PCS; 2018-12-22)
DX: A41.9 Sepsis, unspecified organism (principal); J69.0 Pneumonitis due to inhalation of food and vomit; G93.41 Metabolic encephalopathy; N17.9 Acute kidney failure, unspecified; E44.0 Moderate protein-calorie malnutrition; E87.2 Acidosis; E87.0 Hyperosmolality and hypernatremia; E86.0 Dehydration; R13.12 Dysphagia, oropharyngeal phase; K25.9 Gastric ulcer, unspecified as acute or chronic, without hemorrhage or perforation; K26.9 Duodenal ulcer, unspecified as acute or chronic, without hemorrhage or perforation; K44.9 Diaphragmatic hernia without obstruction or gangrene; R33.9 Retention of urine, unspecified; B96.81 Helicobacter pylori [H. pylori] as the cause of diseases classified elsewhere; I25.10 Atherosclerotic heart disease of native coronary artery without angina pectoris; E78.5 Hyperlipidemia, unspecified; E87.5 Hyperkalemia; H40.9 Unspecified glaucoma; I12.9 Hypertensive chronic kidney disease with stage 1 through stage 4 chronic kidney disease, or unspecified chronic kidney disease; N18.2 Chronic kidney disease, stage 2 (mild); E11.22 Type 2 diabetes mellitus with diabetic chronic kidney disease; E83.39 Other disorders of phosphorus metabolism; Z68.24 Body mass index [BMI] 24.0-24.9, adult; Z79.4 Long term (current) use of insulin; Z79.899 Other long term (current) drug therapy; Z86.73 Personal history of transient ischemic attack (TIA), and cerebral infarction without residual deficits; Z79.82 Long term (current) use of aspirin; Z79.01 Long term (current) use of anticoagulants
CPT/HCPCS: 36415; 36416; 51702; 70450; 71045; 80048; 80053; 80069; 80202; 80307; 81003; 82140; 82550; 82805; 83605; 83690; 83735; 84100; 84145; 84484; 85025; 87040; 87086; 87149; 88305; 88312; 90471; 90670; 93005; 94640; 94760; 96361; 96365; 96375; C9113; G0009; J0690; J0696; J1650; J1815; J2001; J2543; J2704; J3370; J3490; J7050; J7620

== ENCOUNTER 2019-01-16 18:33 | Emergency (ER) | payer MEDICARE, OTHER ==
--- NOTE | 2019-01-16 19:41 | RAD ---
RADIOGRAPH CHEST 1 VIEW: DATE: 01/16/2019 HISTORY: 68-year-old male with cough. COMPARISON: 12/25/2018 FINDINGS: The thoracic aorta is tortuous and ectatic. There is no evidence of pulmonary edema, or pneumothorax. The lateral costophrenic angles are not effaced. Previously, there was mild infiltrate at right base. Now, that region has horizontally oriented multiple streaky densities. Left base appears to be grossly clear. IMPRESSION: 1) interval change in appearance of densities at right lower lung zone. Perhaps this represents resol ving pneumonia versus sequela of recent pneumonia. 2) continued follow-up recommended with PA and lateral views beginning in a few days.. 3) ectasia of thoracic aorta.
== END 2019-01-16 20:34 ==
LOC: ERS 18:33
DX: J18.9 Pneumonia, unspecified organism (principal); E11.9 Type 2 diabetes mellitus without complications; E78.5 Hyperlipidemia, unspecified; I10 Essential (primary) hypertension; I25.10 Atherosclerotic heart disease of native coronary artery without angina pectoris; Z79.82 Long term (current) use of aspirin; Z79.899 Other long term (current) drug therapy; Z79.84 Long term (current) use of oral hypoglycemic drugs; Z86.73 Personal history of transient ischemic attack (TIA), and cerebral infarction without residual deficits
CPT/HCPCS: 71045

== ENCOUNTER 2019-03-26 12:27 | Emergency (ER) | payer MEDICARE, OTHER ==
--- NOTE | 2019-03-26 21:19 | CON ---
DATE OF CONSULTATION: 03/26/2019 CHIEF COMPLAINT: Malfunctioning gastrostomy tube. HISTORY OF PRESENT ILLNESS: Mr. Velázquez was transferred to the emergency room from the alf due to his G-tube malfunctioning. On examination, the cap or tip that slips into the end of the G-tube is missing. The G-tube is completely clogged with solidified feeds. The patient states that the tube was last used last night. The skin around the gastrostomy site appears healthy. This is the original tube that was placed in December 2018. The tubing itself is supple and appears intact. I milked significant amount of formed feed content out of the tubing. I then flushed the tube clear with a 60 mL syringe and water. I replaced the tip with a 20-Jordanian replacement tube tip. The original tubing and internal bumper were not changed out. He has a plastic clamp in the middle of the tube. This lies up and down the colonoscopy use. The external bumper lies between 4 and 5 cm. PHYSICAL EXAMINATION: ABDOMEN: Soft, nontender, nondistended. Bowel sounds are present. His gastrostomy tube site appears intact. The tubing was flushed clear, and the tip replaced as stated above. IMPRESSION: Malfunction of gastrostomy tube, resolved. RECOMMENDATIONS: He can restart his tube feeds and be discharged back to the alf. Job ID: [id number]
== END 2019-03-26 14:55 ==
LOC: ERS 12:27
DX: K94.23 Gastrostomy malfunction (principal); I25.10 Atherosclerotic heart disease of native coronary artery without angina pectoris; E78.5 Hyperlipidemia, unspecified; E78.00 Pure hypercholesterolemia, unspecified; E11.9 Type 2 diabetes mellitus without complications; I10 Essential (primary) hypertension; Z86.73 Personal history of transient ischemic attack (TIA), and cerebral infarction without residual deficits; Z79.899 Other long term (current) drug therapy; Z79.82 Long term (current) use of aspirin; Z79.84 Long term (current) use of oral hypoglycemic drugs
CPT/HCPCS: 43762

== ENCOUNTER 2019-07-14 17:45 | Observation (INO) | payer MEDICARE, OTHER ==
[~2019-07-14 17:45] MED LIST: GASTROGRAFIN 30 ML BOT ONE
[2019-07-14 18:31] LABS: #Basophils 0.2 thou/uL (0.0-0.2); #Eosinphils 0.1 thou/uL (0.0-0.7); #Lymphocytes 1.3 thou/uL (1.20-3.40); #Monocytes 0.6 thou/uL (0.11-0.59); #Neutrophils 3.9 thou/uL (1.40-6.50); %Basophils 2.8 % (0.0-1.0); %Eosinophils 1.9 % (0.0-10.0); %Lymphocytes 21.1 % (21.0-51.0); %Monocytes 9.7 % (0.0-10.0); %Neutrophils 64.5 % (42.0-75.0); Hemoglobin 13.5 g/dL (14.0-18.0); Mean Corpuscular HGB CONC 32.2 g/dL (32.0-36.0); Mean Corpuscular Hemoglobin 28.3 pg (27.0-31.0); Platelet Count 278 thou/uL (130-400); RBC Distribution Width 13.5 % (11.5-14.5); Red Blood Cell (RBC) Count 4.76 mill/uL (4.70-6.10); White Blood Cell (WBC) Count 6.1 thou/uL (4.8-10.8)
[2019-07-14] MEDS ORDERED: cefTRIAXone\\ROCEPHIN 1 GM VIAL ONE (18:35)
[2019-07-14 18:51] LABS: ALT (SGPT) 16 U/L (8-55); AST (SGOT) 12 U/L (5-34); Albumin 3.6 g/dL (3.4-4.8); Alkaline Phosphatase 143 U/L (40-110); Anion Gap 11 mmol/L (10-20); BUN (Urea Nitrogen) 20 mg/dL (8.4-25.7); Bilirubin, Total 0.9 mg/dL (0.2-1.2); Calc. Creatinine Clearance 0 mL/min (70-130); Calcium 9.2 mg/dL (7.8-10.44); Carbon Dioxide 24 mmol/L (23-31); Chloride 106 mmol/L (98-107); Estimated GFR-MDRD Greater than 90; Globulin 3.7 g/dL (2.4-3.5); Glucose 202 mg/dL (80-115); Potassium 4.2 mmol/L (3.5-5.1); Protein, Total 7.3 g/dL (5.8-8.1); Sodium 137 mmol/L (136-145)
--- NOTE | 2019-07-14 19:19 | RAD ---
EXAM: XR Abdomen 1 View/KUB PROVIDED CLINICAL HISTORY: Gastrostomy tube replacement COMPARISON: None FINDINGS: Contrast material opacifies the stomach and the patient's gastrostomy tube. Abdominal bowel gas patte rn is nonspecific. No radiographically apparent urinary tract calculi. IMPRESSION: Administered contrast material opacifies the stomach.
[2019-07-14 22:04] VITALS: BMI 28.0
[2019-07-14] MEDS: Dextrose 5 %-0.45 % NaCl 1,000 ML IV SCH (22:10)
[2019-07-15] MEDS ORDERED: Ondansetron PF 4 MG/2 ML Vial IVP PRN (02:25)
[2019-07-15] MEDS ORDERED: Dextrose 50% Abboject 50 ML SYRINGE SLOW IVP PRN (02:25)
[2019-07-15] MEDS ORDERED: Dextrose 5% in Water 1,000 ML IV PRN (02:25)
[2019-07-15] MEDS ORDERED: HumaLOG 300 UNITS/3 ML VIAL SC PRN ×2 (02:25)
--- NOTE | 2019-07-15 02:56 | HP ---
TIME OF ASSESSMENT: 2199 REASON FOR ADMISSION: Feeding tube replacement. HISTORY OF PRESENT ILLNESS: Mr. Velázquez is a 68-year-old gentleman who was transferred here from the custodial after his G-tube came out. Apparently, the patient was being rolled onto his side and the feeding tube got caught on something and was pulled out. In the ED, they attempted to replace it, but were unsuccessful. He was noted to have some redness surrounding the G-tube insertion site with some slight drainage, but no bleeding. He was treated with IV Rocephin. A small Alston was inserted to hold the tract open and confirmed with contrast x-ray imaging. This was done as per recommendations by Dr. Duarte. Dr. Duarte advised admitting to the hospital with IV antibiotics with plans to replace an EGD suite tomorrow. ALLERGIES: NO KNOWN DRUG ALLERGIES. CURRENT MEDICATIONS: 1. Glipizide. 2. Aspirin. 3. Atenolol. 4. Dorzolamide. 5. Furosemide. 6. Latanoprost. 7. Simvastatin. 8. Timolol. 9. Clopidogrel. 10. Humalog. 11. Mirtazapine. 12. Potassium chloride. 13. Scopolamine. 14. Trazodone. PAST MEDICAL HISTORY: 1. Coronary artery disease. 2. Hyperlipidemia. 3. Ischemic CVA with residual left-sided weakness. 4. Diabetes. 5. Hypertension. PAST SURGICAL HISTORY: None. SOCIAL HISTORY: Patient lives in [facility]. No alcohol use, tobacco use, or illicit drug use. PHYSICAL EXAMINATION: GENERAL: Patient was in heavy sleep, but awoken by verbal stimuli. VITAL SIGNS: Temperature 98.2, pulse 63, respirations 18, O2 saturation 98% on room air, and blood pressure 149/83. HEENT: Normocephalic and atraumatic. Pupils are equal, round, and reactive to light. Sclerae without icterus. Oropharynx is clear. NECK: Supple. LUNGS: Clear to auscultation bilaterally without wheezes, rales, or rhonchi. CARDIAC: Regular rate and rhythm. ABDOMEN: Soft. No apparent tenderness. No guarding or rigidity. He does have a small Alston catheter at the feeding tube insertion site with some slight purulent drainage, slight surrounding erythema. No bleeding. EXTREMITIES: No lower leg swelling. NEUROLOGIC: Patient is minimally communicative, able to answer yes or no with head nod frequently, having to be woken throughout the assessment. Residual left-sided weakness from previous CVA. LABORATORY DATA: White blood count 6.1, hemoglobin 13.5, hematocrit 41.9, platelets 278, and neutrophils 64.5. Sodium 137, potassium 4.2, BUN 20, creatinine 0.77, and GFR greater than 90. Total bilirubin 0.9, AST 12, ALT 16, alk phos 143, and albumin 3.6. IMPRESSION AND PLAN: Mr. Velázquez is a 68-year-old gentleman who is being admitted for IV antibiotics due to concerns for infected feeding G-tube site and replacement of feeding tube. Dr. Duarte has been notified, but we will place a formal consultation to Gastroenterology. We will continue antibiotics. We will continue gentle hydration. Patient with known history of hypertension and diabetes mellitus as well as hyperlipidemia and coronary artery disease. We will resume home medications once verified. Monitor blood pressure and blood glucose. Initiate insulin sliding scale. Patient's case reviewed with the attending, who agrees with plan of care as described above. We will need to keep patient n.p.o. pending feeding tube replacement tomorrow. Job ID: [id number]
[2019-07-15 05:37] LABS: #Eosinphils 0.1 thou/uL (0.0-0.7); #Monocytes 0.5 thou/uL (0.11-0.59); #Neutrophils 2.6 thou/uL (1.40-6.50); %Basophils 0.1 % (0.0-1.0); %Eosinophils 2.8 % (0.0-10.0); %Lymphocytes 37.8 % (21.0-51.0); %Monocytes 9.8 % (0.0-10.0); %Neutrophils 49.5 % (42.0-75.0); Hemoglobin 12.7 g/dL (14.0-18.0); Mean Corpuscular HGB CONC 31.4 g/dL (32.0-36.0); Mean Corpuscular Hemoglobin 28.1 pg (27.0-31.0); Mean Corpuscular Volume 89.5 fL (78.0-98.0); Mean Platelet Volume 9.2 fL (7.4-10.4); Platelet Count 268 thou/uL (130-400); RBC Distribution Width 13.4 % (11.5-14.5); Red Blood Cell (RBC) Count 4.51 mill/uL (4.70-6.10); White Blood Cell (WBC) Count 5.2 thou/uL (4.8-10.8)
[2019-07-15 05:58] LABS: Anion Gap 10 mmol/L (10-20); BUN (Urea Nitrogen) 14 mg/dL (8.4-25.7); Calc. Creatinine Clearance 103 mL/min (70-130); Calcium 8.7 mg/dL (7.8-10.44); Carbon Dioxide 24 mmol/L (23-31); Chloride 108 mmol/L (98-107); Estimated GFR-MDRD Greater than 90; Glucose 188 mg/dL (80-115); Potassium 3.9 mmol/L (3.5-5.1); Sodium 138 mmol/L (136-145)
[2019-07-15] MEDS: Dextrose 5 %-0.45 % NaCl 1,000 ML IV SCH (06:00)
[2019-07-15] MEDS: Famotidine/PF 20 mg/2ml Vial SLOW IVP SCH ×2 (11:28→20:30)
--- NOTE | 2019-07-15 13:48 | PDOC.EVN ---
Event Note - Event Note Event Note: Feels fine. Hungry. No pain at the PEG site. Heart RRR, Lungs CTA. Abdomen soft, NT, ND. PEG sight very slightly red with mucoid secretions. Continue Rocephin while here, but can be changed to enteral abx when PEG is replaced and functioning.
[2019-07-15] MEDS ORDERED: cefTRIAXone\\ROCEPHIN 1 GM in Sodium Chloride 0.9% 100 ML IVPB SCH (18:00)
--- NOTE | 2019-07-15 18:43 | CON ---
DATE OF CONSULTATION: 07/15/2019 REASON FOR CONSULTATION: Percutaneous gastrostomy tube inadvertently removed. CONSULTING PROVIDER: Ms. Shanita Doyle. 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 The patient is currently residing in a group home, and apparently yesterday while the patient was being repositioned, the feeding tube got caught and was inadvertently removed. Attempts to replace the PEG tube in the emergency department were unsuccessful, but the ER physician was able to keep the stoma open with a small diameter Alston tube. Currently, the patient states that he is doing well with no immediate problems or events. He currently denies any nausea, vomiting, fevers, chills, abdominal pain, GI bleeding, diarrhea, or constipation. (Of note, the patient had initial placement of his percutaneous gastrostomy tube in 12/2018 secondary to the cerebrovascular accident as stated above). REVIEW OF SYSTEMS: A 10-category review of systems was obtained with all responses negative except for the pertinent positives as listed in HPI. PAST MEDICAL HISTORY: As per HPI. PAST SURGICAL HISTORY: Esophagogastroduodenoscopy with percutaneous gastrostomy tube placement in 12/2018. SOCIAL HISTORY: Denies any tobacco, alcohol, or illicit drug use. FAMILY HISTORY: Denies any GI malignancies. OUTPATIENT MEDICATIONS: Reviewed. ALLERGIES: NO KNOWN DRUG ALLERGIES. PHYSICAL EXAMINATION: VITAL SIGNS: Temperature 97.7, pulse 86, blood pressure 134/87, respiratory rate 18, and saturating 99% on room air. GENERAL: The patient was lying in bed, in no acute distress. Alert and oriented x3, although responses were somewhat limited. HEENT: Normocephalic and atraumatic. Neck is supple. No JVD or scleral icterus noted. CARDIOVASCULAR: Regular rate and rhythm with no discernable murmurs, gallops, or rubs. RESPIRATORY: Clear to auscultation bilaterally with no discernable wheezes or rales. ABDOMEN: Normoactive bowel sounds. Soft, nondistended, and nontender. A small Alston catheter was seen emanating from the gastrostomy tube stoma in the left upper quadrant with slight increased skin erythema around the stoma site itself, but could also be slight granulation tissue. EXTREMITIES: No cyanosis, clubbing or edema. LABORATORY DATA: CBC with a white blood cell count of 5.2, hemoglobin 12.7, hematocrit 40.4, and platelets 268. Chemistry with a sodium of 138, potassium 3.9, chloride 108, CO2 of 24, BUN 14, creatinine 0.77, and glucose 188. AST 12, ALT 16, alkaline phosphatase 143, and total bilirubin 0.9. IMAGING DATA: An abdominal x-ray was obtained on 07/14/2019 after the Alston catheter had been placed with contrast material opacifying the stomach and the patient's gastrostomy tube. 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 Removal of the gastrostomy tube: The patient had the placement of a gastrostomy tube in 12/2018 after the patient was noted to have oropharyngeal dysphagia secondary to an ischemic cerebrovascular accident. Since that time, the patient had not been having any difficulty with the gastrostomy tube itself, but it was inadvertently removed on 07/14/2019 with attempts to replace this tube with a replacement tube unsuccessful. As such, a small caliber Alston tube was then placed with contrast instilled through the tubing itself to confirm positioning in the stomach in order to hold open the stoma site. At this time, the caliber of the Alston tube would be inadequate in order for administration of tube feedings and/or medications, and given the significant decrease in caliber of the stomal site, would most likely not be amenable to dilation using Savary dilators. As such, a repeat esophagogastroduodenoscopy with guidewire placement and replacement of the gastrostomy tube itself is indicated. RECOMMENDATIONS: 1. Would continue n.p.o. status given evidence of oropharyngeal dysphagia in the past. 2. Would maintain the Alston catheter in appropriate position for now until the patient undergoes repeat EGD. 3. Would hold any anticoagulation prior to upper endoscopy. 4. We will plan for EGD with percutaneous gastrostomy tube placement tomorrow. 5. After the patient's gastrostomy tube has been replaced and if the replacement tube was able to utilize the existing stoma, the patient could be potentially discharged to the group home tomorrow. We will continue to follow. Please call with any questions. Job ID: [id number]
[2019-07-16] MEDS ORDERED: Dextrose 5 %-0.45 % NaCl 1,000 ML IV SCH (05:45)
[2019-07-16] MEDS ORDERED: Ketamine 50 MG/ML (10ML VIAL) ONE (07:58)
[2019-07-16] MEDS ORDERED: Promethazine HCl 25 MG/ML VIAL SLOW IVP PRN ×2 (08:02→08:33)
[2019-07-16] MEDS ORDERED: Ondansetron HCl/PF 4 MG/2 ML Vial IVP PRN ×2 (08:02→08:33)
[2019-07-16] MEDS ORDERED: Promethazine HCl 25 MG/ML VIAL IM PRN ×2 (08:02→08:33)
[2019-07-16] MEDS: Famotidine/PF 20 mg/2ml Vial SLOW IVP SCH (10:19)
[2019-07-16] MEDS ORDERED: PROPOFOL 200 MG/20 ML VIAL ONE (10:23)
--- NOTE | 2019-07-16 10:36 | PDOC.HOSPP ---
- Subjective Encounter Date: 07/16/19 Encounter Time: 09:10 Subjective: Patient seen and examined. No new complaints. No overnight events - Objective Vital Signs & Weight: Vital Signs (12 hours) Temp Pulse Resp BP Pulse Ox 07/16/19 04:00 98.5 F 82 20 161/98 H 96 07/16/19 00:00 97.9 F 77 20 135/79 98 Weight Admit Weight 174 lb 2.643 oz Weight 174 lb 2.643 oz I&O: 07/15/19 07/16/19 07/17/19 06:59 06:59 06:59 Intake Total 1840 50 Balance 1840 50 Result Diagrams: 07/15/19 05:19 07/15/19 05:19 Additional Labs: Accuchecks 07/16/19 07/15/19 07/15/19 05:09 19:56 17:03 POC Glucose 126 H 160 H 183 H Hospitalist ROS - Review of Systems ENT: denies: ear pain, ear discharge, nose pain, nose discharge, nose congestion , mouth pain, mouth swelling, throat pain, throat swelling, other Respiratory: denies: cough, dry, shortness of breath, hemoptysis, SOB with excertion, pleuritic pain, sputum, wheezing, other Cardiovascular: denies: chest pain, palpitations, orthopnea, paroxysmal noc. dyspnea, edema, light headedness, other Gastrointestinal: denies: nausea, vomiting, abdominal pain, diarrhea, constipation, melena, hematochezia, other Genitourinary: denies: dysuria, frequency, incontinence, hematuria, retention, other Musculoskeletal: denies: neck pain, shoulder pain, arm pain, back pain, hand pain, leg pain, foot pain, other - Medication Medications: Active Medications Generic Name Dose Route Start Last Admin Trade Name Freq PRN Reason Stop Dose Admin Famotidine 20 mg 07/15/19 09:00 07/16/19 10:19 Pepcid SLOW IVP Not Given Q12HR PAMELA Ceftriaxone Sodium 1 gm/ 100 mls @ 200 mls/hr 07/15/19 18:00 07/15/19 17:09 Sodium Chloride IVPB 100 mls Q24HR PAMELA Administration Dextrose/Sodium Chloride 1,000 mls @ 50 mls/hr 07/16/19 05:45 07/16/19 05:35 D5 1/2 Ns IV 1,000 mls .Q20H PAMELA Administration - Exam General Appearance: NAD, awake alert Eye: PERRL, anicteric sclera ENT: normocephalic atraumatic, no oropharyngeal lesions Neck: supple, symmetric, no JVD Heart: RRR, no murmur, no gallops Respiratory: CTAB, no wheezes, no rales Gastrointestinal: soft, non-distended, normal bowel sounds Gastrointestinal - other findings: peg tube in place Extremities: no cyanosis, no clubbing Skin: normal turgor, no lesions Musculoskeletal: normal tone, normal strength Psychiatric: normal affect, normal behavior Hosp A/P (1) PEG tube malfunction Code(s): K94.23 - GASTROSTOMY MALFUNCTION Status: Acute (2) Diabetes type 2, controlled Code(s): E11.9 - TYPE 2 DIABETES MELLITUS WITHOUT COMPLICATIONS Status: Chronic (3) Dyslipidemia Code(s): E78.5 - HYPERLIPIDEMIA, UNSPECIFIED Status: Chronic (4) Glaucoma Code(s): H40.9 - UNSPECIFIED GLAUCOMA Status: Chronic (5) H/O: CVA (cerebrovascular accident) Code(s): Z86.73 - PRSNL HX OF TIA (TIA), AND CEREB INFRC W/O RESID DEFICITS Status: Chronic (6) HTN (hypertension) Code(s): I10 - ESSENTIAL (PRIMARY) HYPERTENSION Status: Chronic Qualifiers: - Plan old records reviewed/req will dc back to assisted, peg tube replaced, resume all previous treatment, medication reviewed and continue to provide symptomatic treatment and supportive care
--- NOTE | 2019-07-16 10:59 | OP ---
DATE OF PROCEDURE: 07/16/2019 PROCEDURE PERFORMED: Esophagogastroduodenoscopy with PEG tube placement/replacement. INDICATION FOR PROCEDURE: Oropharyngeal dysphagia status post CVA, inadvertent removal of PEG tube prior to this admission. DESCRIPTION OF PROCEDURE: After the risks and benefits of the procedure were explained to the patient's and patient's surrogate (Madiha Crowley) including risks of bleeding, infection, perforation, reactions to anesthesia, aspiration and/or pain, informed consent was obtained. The patient was then taken to the endoscopy suite, where deep sedation was administered via propofol and anesthesia support. Once adequate sedation was achieved, the standard gastroscope was introduced into the mouth with intubation of the esophagus, stomach, and the proximal small intestines. Once the initial examination was performed, evaluation of the prior stoma site was performed and deemed an adequate position with removal of the existing Alston catheter. A guidewire was then advanced through the existing stoma and retrieved with a snare via the gastroscope, which was then pulled out through the mouth. A [employer] 20-Italian percutaneous gastrostomy tube was then affixed to the guidewire and using a push technique, it was then advanced into the stomach and out through the anterior abdominal wall with little resistance. The tube was then cut to length. The gastroscope was then advanced back into the stomach to confirm proper placement of the percutaneous gastrostomy tube. Upon confirmation, all equipment was then removed from the patient and the patient was transferred to PACU in satisfactory condition. The patient tolerated the procedure well with no immediate perioperative complications. FINDINGS: Esophagus: Normal-appearing mucosa was seen in the proximal, mid, and distal esophagus. There was no evidence of erosions, ulcerations, mass, lesions, or active/recent bleeding. A hiatal hernia was seen in the distal esophagus measuring approximately 3 cm in length. Stomach: Upon initial evaluation, normal-appearing mucosa was seen in the gastric cardia, fundus, greater curvature, antrum, and incisura. The prior PEG tube site was seen in the gastric body and did exhibit some mild increased mucosal erythema surrounding the stomal site, but no evidence of purulence or infection. There was also a small ulceration at the stoma site immediately adjacent to the existing Alston catheter that was in their, but again no evidence of recent bleeding. With the Alston catheter confirming placement of an open/mature stoma site, the Alston catheter was then removed. A guidewire was then advanced through the existing stomal site and retrieved via the gastroscope/snare and a 20-Italian [employer] percutaneous gastrostomy tube was then advanced through the existing stomal site without difficulty. Otherwise, there was no evidence of erosions, mass lesions, or active/recent bleeding. Duodenum: Normal-appearing mucosa was seen in both the duodenal bulb and second portion of the duodenum. There was no evidence of erosions, ulcerations, mass, lesions, or active/recent bleeding. IMPRESSION: 1. Mild mucosal erythema and small ulceration at the prior percutaneous gastrostomy tube site consistent with increased traction placed on the tube, but no evidence of purulence or infection. 2. Successful placement of a [employer] 20-Italian percutaneous gastrostomy tube to the prior stomal site. 3. 3 cm hiatal hernia. RECOMMENDATIONS: 1. The patient can restart tube feeds immediately given the maturation of the stomal site (the previous tube was placed in December 2018). 2. Would adhere to standard PEG tube care including maintaining approximately 1 cm distance between the external bumper and the skin, refraining from placing any dressings between the external bumper and the skin, rotating the existing tube from the outside approximately 7 and 20 degrees daily, and flushing the tube with 60 mL of warm water both before and after any bolus tube feeds. 3. Pain control per primary team (although the patient should have relatively little pain at this point). With successfully placing the PEG tube through the existing stoma site, the patient can be restarted on tube feeds and discharged back to the [facility] today. We will sign off at this time. Please call with any questions. Job ID: [id number]
[2019-07-16 11:25] VITALS: BP 129/78; TEMP 97.9
--- NOTE | 2019-07-16 12:08 | DIS ---
DATE OF ADMISSION: 07/14/2019 DATE OF DISCHARGE: 07/16/2019 PRIMARY CARE PHYSICIAN: Dr. Escobedo. DISCHARGE DISPOSITION: [facility]. PRIMARY DISCHARGE DIAGNOSIS: PEG tube malfunction, status post G-tube replacement. SECONDARY DISCHARGE DIAGNOSES: Hypertension, history of CVA with residual weakness and oropharyngeal dysphagia, glaucoma, dyslipidemia, diabetes type 2. PRIMARY PROCEDURE/OPERATION: PEG tube replacement was done by Dr. Duarte, radiological investigation, abdomen x-ray. SIGNIFICANT LABORATORY DATA: WBC 5.2, hemoglobin 12.7, platelet 268. Sodium 138, potassium 3.9, BUN 14, creatinine 0.77, calcium 8.7. DISCHARGE MEDICATIONS: 1. Humalog insulin as per sliding scale. 2. Aspirin 325 mg per tube daily. 3. Tenormin 50 mg per tube daily. 4. Plavix 75 mg per tube daily. 5. Dorzolamide ophthalmic drops daily. 6. Lasix 80 mg per tube daily. 7. Glipizide 10 mg per tube daily. 8. Xalatan eyedrops at bedtime. 9. Remeron 15 mg per tube at bedtime. 10. Potassium chloride 20 mEq per tube daily. 11. Scopolamine patch as directed. 12. Zocor 10 mg per tube at bedtime. 13. Trazodone 100 mg per tube at bedtime. CONTRAINDICATION: None. CODE STATUS: Full code. INPATIENT DIRECTOR [place]: Dr. Duarte, GI was consulted. TEST RESULTS PENDING ON DISCHARGE: None. ALLERGIES: NO KNOWN DRUG ALLERGIES. DISCHARGE PLAN: Posthospital, the patient is discharged back to [facility]. HOSPITAL COURSE: A 68-year-old male, who has history of CVA with residual weakness and he has oropharyngeal dysphagia with G-tube, which came out and it was not functioning and that is why the patient was sent to emergency room for evaluation. Gastroenterology Team was consulted initially in the emergency room. They tried to replace it, but it was unsuccessful and that is why we have to keep in the hospital. Dr. Duarte did PEG tube replacement today and now the patient is back to his baseline status and we are discharging him back to senior living. The patient is seen and examined at bedside today. Please see my progress note from today for further detail. Job ID: [id number]
== END 2019-07-16 12:42 ==
LOC: ERS 17:45 → T4-B 21:17
PROVIDERS: ADMIT Internal Medicine; ATTEND Internal Medicine
PROC: 0DH63UZ Insertion of Feeding Device into Stomach, Percutaneous Approach (ICD-10-PCS; principal; 2019-07-16)
DX: K94.23 Gastrostomy malfunction (principal); R13.12 Dysphagia, oropharyngeal phase; I10 Essential (primary) hypertension; E11.9 Type 2 diabetes mellitus without complications; E78.5 Hyperlipidemia, unspecified; H40.9 Unspecified glaucoma; I69.354 Hemiplegia and hemiparesis following cerebral infarction affecting left non-dominant side; Z79.4 Long term (current) use of insulin; Z79.82 Long term (current) use of aspirin; Z79.899 Other long term (current) drug therapy
CPT/HCPCS: 43246; 74018; 80048; 80053; 82962 ×2; 85025 ×2; 96361 ×3; 96365; 96375; 96376; 99284; G0378 ×4; 36415; 36416; B4087; J0696; J2704; J3490; Q9963; S0028